=== PATIENT | male | born 1965 | race Caucasian/White ===

== ENCOUNTER 2021-12-26 02:25 | Outpatient (CLI) | payer BC, SELFPAY ==
[2021-12-26 11:43] LABS: Source Nasal/Nares
[2021-12-26 15:26] LABS: COVID-19 PCR Negative (Negative)
== END 2021-12-26 02:26 | disposition home or self-care (01) ==
PROVIDERS: Visit Provider Podiatrist
DX: Z20.822 Contact with and (suspected) exposure to COVID-19 (principal); Z01.818 Encounter for other preprocedural examination
CPT/HCPCS: 87635

== ENCOUNTER 2021-12-28 06:17 | Day surgery (SDC) | payer BC, SELFPAY ==
--- NOTE | 2021-12-27 20:44 | W.PM.HP.N ---
Date of service: 12/27/21 History of Present Illness History of Present Illness Chief Complaint: diabetic ulcer, right hallux Narrative: 56 YO male with a diabetic ulcer of the right hallux that has been there for over a year. It has not responded to non operative treatment. [facility] Medical History Bursitis of shoulder Calculus of kidney Diabetes Erectile dysfunction Essential tremor HLD (hyperlipidemia) HTN (hypertension) Pulmonary embolism 2019 Ulcer of toe Social History Smoking/Tobacco Use Status: Current every day Tobacco Type: smokeless tobacco Smoking risk assessment performed?: Yes Alcohol Intake: current Alcohol Intake frequency: a few times a week Alcohol type: beer Drug use: Never Substance use type: does not use Do you feel safe at home: Yes Do you feel safe in your relationship?: Yes Meds Allergies and Home Medications Allergies Allergy/AdvReac Type Severity Reaction Status Date / Time hydrocodone AdvReac Intermediate Nausea Unverified 12/27/21 09:45 Home Medications Medication Instructions Recorded Confirmed Type atorvastatin 10 mg tablet 10 mg PO DAILY 12/26/21 12/27/21 History dulaglutide 4.5 mg/0.5 mL 4.5 mg subcut QWEEK 12/26/21 12/26/21 History subcutaneous pen injector (Trulicity) empagliflozin 25 mg tablet 25 mg PO DAILY 12/26/21 12/27/21 History (Jardiance) insulin glargine 100 unit/mL (3 50 unit subcut QAM 12/26/21 12/27/21 History mL) subcutaneous pen (Basaglar KwikPen U-100 Insulin) metformin 1,000 mg tablet 1,000 mg PO BID 12/26/21 12/27/21 History mupirocin 2 % topical ointment 1 applic topical DAILY 12/26/21 12/27/21 History pregabalin 100 mg capsule 100 mg PO DAILY 12/26/21 12/27/21 History propranolol 80 mg tablet 80 mg PO DAILY 12/26/21 12/27/21 History rivaroxaban 10 mg tablet (Xarelto) 10 mg PO DAILY 12/26/21 12/27/21 History amoxicillin 875 mg-potassium 1 tab PO BID 12/27/21 12/27/21 History clavulanate 125 mg tablet Exam Narrative Exam Narrative: 56 YO male in NAD Heads Normo-cephalic Eyes PERRLA Hearing is adequate Heart had RRR, no murmurs noted, no rubs or gallops Lung rg are clear Abdomen is soft, BS x 4 Peripheral pulses are palpable, feet are warm to the touch, no edema Full thickness wound is noted along the medial wall of the IPJ of the hallux. Hallux limitus noted with advanced degenerative arthrosis of the 1st MPJ Muscle gps 5/5 Neurological exam: diminished sensation consistent with diabetic neuropathy Imp: Diabetic ulcer right hallux Hallux limitus/rigidus right Plan: Emiliaon is being brought to the OR for a joint resectional arthroplasty of the 1st MPJ and wound debridement of the right hallux. He understands the risks and complications of surgery to include the potential for pain, scarring, infection, nerve damage, failure to thrive potentially requiring additional surgery and possible loss of the toe. All questions have been answered, informed consent obtained.
[2021-12-28 06:32] VITALS: BP 118/84; PULSE 76; RESP 20; TEMP 36.4; O2SAT 95
--- NOTE | 2021-12-28 06:58 | ANES.PREOP_ITS ---
General Info Date of Service Date Performed: 12/28/21 Height: 6 ft 2 in Weight: 131.7 kg Body Mass Index (BMI): 37.3 Surgical Procedure: Operation Date: 12/28/21 07:40 Proposed Procedure Side Surgeon pablo Ny Bunionectomy Right Tomas Betancourt DPM s Wound Debridement Right Tomas S SVEN Betancourt Meds Allergies and Home Medications Allergies Allergy/AdvReac Type Severity Reaction Status Date / Time hydrocodone AdvReac Intermediate Nausea Unverified 12/28/21 06:28 Home Medication Medication Instructions Recorded atorvastatin 10 mg tablet 10 mg PO DAILY 12/26/21 dulaglutide 4.5 mg/0.5 mL 4.5 mg subcut QWEEK 12/26/21 subcutaneous pen injector (Trulicity) empagliflozin 25 mg tablet 25 mg PO DAILY 12/26/21 (Jardiance) insulin glargine 100 unit/mL (3 50 unit subcut QAM 12/26/21 mL) subcutaneous pen (VIVAaglar KwikPen U-100 Insulin) metformin 1,000 mg tablet 1,000 mg PO BID 12/26/21 mupirocin 2 % topical ointment 1 applic topical DAILY 12/26/21 pregabalin 100 mg capsule 100 mg PO DAILY 12/26/21 propranolol 80 mg tablet 80 mg PO DAILY 12/26/21 rivaroxaban 10 mg tablet (Xarelto) 10 mg PO DAILY 12/26/21 amoxicillin 875 mg-potassium 1 tab PO BID 12/27/21 clavulanate 125 mg tablet Current Visit Medications: Current Medications Generic Name Dose Route Start Last Admin Trade Name Freq PRN Reason Stop Dose Admin Sodium Chloride 500 mls @ 0 mls/hr 12/28/21 06:00 Saline 500ml Bag IV PRN PRN As Directed Cefazolin Sodium/Dextrose 2 gm in 50 mls @ 100 mls/hr 12/28/21 06:00 Ancef Duplex IVPB 12/28/21 18:00 PREOP CATHY Ringer's Solution 1,000 mls @ 80 mls/hr 12/28/21 06:00 IV 01/26/22 23:59 INFUSION CATHY IV Miscellaneous Supplies 1 each 12/28/21 06:00 Iv Access IV DIRECTED CATHY IV Miscellaneous Supplies 1 each 12/28/21 06:00 Iv Access IV 01/26/22 23:59 DIRECTED [facility] Povidone Iodine 0 ml 12/28/21 06:00 Povidone-Iodine Soln. 118 Ml Btl TP DIRECTED [facility] Sodium Chloride 0 ml 12/28/21 06:00 Normal Saline Flush 10 Ml Syr IVP PRN PRN PFSH Medical History Medical History (Updated 12/28/21 @ 06:32 by Cecilia Pope, RN) Bursitis of shoulder Calculus of kidney Diabetes Erectile dysfunction Essential tremor Heartburn HLD (hyperlipidemia) HTN (hypertension) Pulmonary embolism 2019 Ulcer of toe Surgical History Surgical History (Updated 12/28/21 @ 06:28 by Cecilia Pope RN) Hx of colonoscopy Hx of knee surgery right - reconstruction acl/mcl Tobacco Smoking/Tobacco Use Status: Current every day Tobacco Type: smokeless tobacco Alcohol Alcohol Intake: current Alcohol intake frequency: a few times a week Alcohol type: beer Substance Use Substance use: Never Substance use type: does not use Vital Signs and Lab Results Vital Signs Most Recent Vital Signs in EMR: Most Recent Vital Signs Temp Pulse Resp BP Pulse Ox 36.4 C L 76 20 118/84 95 12/28/21 06:32 12/28/21 06:32 12/28/21 06:32 12/28/21 06:32 12/28/21 06:32 Lab Results Blood Type / Crossmatch: No Data to Display Complete Blood Count: No Data to Display Complete Metabolic Panel: No Data to Display Liver Function Panel: No Data to Display Coagulation Panel: No Data to Display Cardiac Panel: No Data to Display Arterial Blood Gas: No Data to Display Venous Blood Gas: No Data to Display Pancreas Panel: No Data to Display Thyroid Panel: No Data to Display Infectious Disease: Coronavirus (COVID-19)(PCR) Negative (Negative) 12/26/21 11:15 Coronavirus 2019 Source Nasal/Nares 12/26/21 11:15 Blood Cultures: No Data to Display Toxicology Panel: No Data to Display Anesthesia Assessment and Plan Anesthesia History Personal History: No History of Anesthesia Complications Family History: No Family History of Anesthesia Complications Exercise Tolerance Exercise Tolerance: Metabolic Equivalents>4 Pertinent Negatives Pertinent Negatives: No Major Cardiovascular Symptoms or Complaints, No Major Pulmonary Symptoms or Complaints (Hx of PEx2) and No History of CVA/TIA Cardiac & Pulmonary Exam Cardiac Exam: Normal S1/S2 Heart Sounds Pulmonary Exam: Clear Bilateral Breath Sounds Implantable Cardiac Device Does patient have a Pacemaker or an ICD?: No Airway Exam Known Difficult Airway: No Mallampati Class: 3 Mouth Opening: Normal (> 3cm) Thyromental Distance: Greater than 3 cm Neck Range of Motion: Full ROM Neck Circumference: Normal Teeth Condition: Normal Dentition ASA Classification ASA Score: ASA 2 Emergency Case?: No NPO Status NPO Status: NPO Clears >2 hours, Solids >8 hours Anesthesia Plan Resuscitation Status: Full Code Anesthesia Technique: General Anesthesia Airway Planned: Endotracheal Tube (Change in plan due to active GERD today. Originally natural airway now ETT. Patient understands plan. ) Monitors Used: Standard Monitors
[2021-12-28] MEDS: Lactated Ringers 1,000 ML 80 ML IV (07:05)
[2021-12-28] MEDS: ceFAZolin 2 GM/50 ML BAG IVPB (07:38)
[2021-12-28 07:47] VITALS: BMI 37.3
[2021-12-28] MEDS: Bupivacaine 0.5% Pres-Free 30 ML VIAL (07:56)
[2021-12-28] MEDS: Lidocaine 1% Pres-Free 30 ML VIAL (07:56)
[2021-12-28 08:50] VITALS: BP 107/69; PULSE 81; RESP 22; TEMP 36.6; O2SAT 95
--- NOTE | 2021-12-28 08:53 | W.PM.OP ---
Date of service: 12/28/21 Operative Note Operative Note DATE OF PROCEDURE: 12/28/21 PRE-OP DIAGNOSIS: hallux limitus/rigidus with diabetic ulcer, right foot PROCEDURE: Ny type bunionectomy right Debridement wound, full thickness right hallux SURGEON: Tomas Betancourt Refer to Anesthesia Record ESTIMATED BLOOD LOSS: 1 TOURNIQUET TIME: 52 COMPLICATIONS: None Indications: 56 YO male with history of diabetic ulceration under the IPJ of the right hallux present for well over 1 year. This is failed to close with nonoperative treatments. He also had end-stage degenerative arthrosis of the first MPJ which is a primary contributing factor to the ulceration. He is being brought to the OR for a Ny type bunionectomy, arthroplasty of the first MPJ and wound debridement of the ulceration at the IPJ level. Risk and complications have been discussed. He understands the potential for pain, scarring, infection, floating of the toe, shortening of the toe, persistent ulceration requiring additional revisional procedures potential loss of the toe. No promises have been made to final outcome of surgery. Informed consent has been obtained. Procedure Description: Emiliano is brought to the operative suite placed in the supine position general endotracheal anesthesia achieved. Timeout was performed for safe surgery. The right foot was exsanguinated well-padded ankle tourniquet inflated 250 mmHg. Attention was directed to the dorsal aspect of the first MPJ where a 5 cm incision was made medial parallel to the EHL tendon. The incision was deepened in controlled depth fashion hemostasis acquired with electrocautery as needed. Dissection was carried down to the joint capsule. The capsule was incised midline and divided medially and laterally. Extensive periarticular exostosis formations with osteophytes noted surrounding the joint. The cartilaginous structures were nearly completely eroded on the head of the first metatarsal. With power instrumentation the dorsal medial and lateral hyperostosis from the first metatarsal head were resected. Approximately 1.25 cm of bone resected from the base of the proximal phalanx a little feathering was then performed dorsally so as to improve range of motion. All rough and bony edges were rasped smooth. Good resection of bone and much improved range of motion appreciated on the table. The wound was copiously irrigated with normal saline. The joint capsule was repaired with the hallux held in rectus position with simple interrupted suture 3-0 Vicryl the subcutaneous layer was repaired with simple interrupted suture of 4-0 Vicryl the skin was brought together with continuous running suture of 4-0 Monocryl attention was now directed to the wound under the IPJ of the hallux which was sharply debrided with a #10 scalpel removing the hypertrophic margin slough and devitalized tissue at the base of the wound this debridement continued full-thickness the wound measured 1.4 x 1.6 cm the wound was cleansed with normal saline the dorsal incision was treated with Mastisol half-inch Steri-Strips Xeroform was applied to the incision and plantar hallux wound Betadine solution soaked gauze was then used to support the hallux in a rectus position I opted not to K wire the toe due to the open wound and potential for infection gauze fluff compression dressings were applied and the tourniquet was released at 52 minutes vascularity returning to all toes immediately Emiliano arose from general anesthesia without difficulty and was sent to PACU sharp and sponge counts were correct he will be followed by myself next week. Dictated with Av naturally speaking, not reviewed for leasing assistant accuracy
[2021-12-28 08:55] VITALS: BP 114/61; PULSE 84; RESP 23; TEMP 36.6; O2SAT 95
[2021-12-28 09:00] VITALS: BP 121/84; PULSE 88; RESP 18; TEMP 36.6; O2SAT 94
--- NOTE | 2021-12-28 09:01 | W.PM.DS.N ---
Date of service: 12/28/21 Time of Service: 09:02 DS: Diagnosis Discharge Diagnosis (1) Ulcer of toe: Status: Acute (2) Hallux limitus of right foot: Start date: 12/28/21 Start time: 09:03 Status: Acute Asessment and Plan: Status post arthroplasty, Ny bunionectomy right foot, full-thickness debridement ulceration IPJ right hallux Discharge Plan Disposition Patient Disposition: HOME Condition: Good Discharge Details Reason For Visit: Surgical correction hallux limitus and diabetic ul Attending Provider: Tomas Betancourt Primary Care Provider: Unknown,Unknown Home Meds and New Rx's Prescriptions: No Action propranolol 80 mg Tablet 80 mg PO DAILY atorvastatin 10 mg Tablet 10 mg PO DAILY metformin 1,000 mg Tablet 1,000 mg PO BID mupirocin 2 % Ointment 1 applic TOPICAL DAILY pregabalin 100 mg Capsule 100 mg PO DAILY insulin glargine [Basaglar KwikPen U-100 Insulin] 100 unit/mL (3 mL) Insulin Pen 50 unit SUBCUT QAM Xarelto 10 mg Tablet 10 mg PO DAILY Jardiance 25 mg Tablet 25 mg PO DAILY Trulicity 4.5 mg/0.5 mL Pen Injector 4.5 mg SUBCUT QWEEK amoxicillin-pot clavulanate [Augmentin] 875-125 mg Tablet 1 tab PO BID Discharge Instructions Activity:: Elevate Remove Dressings/Wound Care:: Do Not Remove Shower/Bathe:: Cover Diet:: Carb Counting Discharge Orders Discharge Orders: Discharge Order (Routine); Ordered 12/28/21 Ordered By: Tomas Betancourt DS: Summary Time Spent with Patient providing and/or coordinating discharge services: Less than 30 minutes Status at Discharge Functional status at discharge: independent ambulation Overall status at discharge: patient is back to baseline Mental Status: mental status grossly normal Speech and Movement: speech and movement normal Mood: congruent mood Affect: normal affect Exam Psych Mental Status: mental status grossly normal Speech and Movement: speech and movement normal Mood: congruent mood Affect: normal affect DS: Data Vitals/I&O Vitals and I&O: Vital Signs Temperature 36.6 C 12/28/21 08:55 Pulse 84 12/28/21 08:55 Pulse Rhythm Regular 12/28/21 06:32 Respiratory Rate 25 H 12/28/21 08:55 Respiratory Depth Deep 12/28/21 06:32 Blood Pressure 114/61 12/28/21 08:55 Pulse Oximetry 95 12/28/21 08:55 Respiratory End-tidal CO2 35 12/28/21 08:55 Oxygen Delivery Method Nasal Cannula 12/28/21 08:55 Oxygen Flow Rate 3 12/28/21 08:55 Pain Level 0 12/28/21 08:55 Intake & Output 12/27/21 12/28/21 12/28/21 18:59 06:59 18:59 Intake Total 350 / 350 Balance 350 / 350 Weight 127.913 kg 131.7 kg Intake: IV 350 / 350 Other: Emesis Description None PFSH All Active Problems Hallux limitus of right foot (Acute) Ulcer of toe (Acute) Medical History Bursitis of shoulder Calculus of kidney Diabetes Erectile dysfunction Essential tremor Heartburn HLD (hyperlipidemia) HTN (hypertension) Pulmonary embolism 2019 Surgical History Hx of colonoscopy Hx of knee surgery right - reconstruction acl/mcl Social History Smoking/Tobacco Use Status: Current every day Tobacco Type: smokeless tobacco Smoking risk assessment performed?: Yes Alcohol Intake: current Alcohol Intake frequency: a few times a week Alcohol type: beer Drug use: Never Substance use type: does not use Do you feel safe at home: Yes Do you feel safe in your relationship?: Yes
[2021-12-28 09:16] VITALS: BP 104/78; PULSE 84; RESP 16; TEMP 36.5; O2SAT 95
[2021-12-28 09:41] VITALS: BP 111/81; PULSE 75; RESP 17; TEMP 36.4; O2SAT 95
--- NOTE | 2021-12-28 10:17 | W.ANESPOSTOP ---
Postoperative Evaluation Date, Time and Location Date Performed: 12/28/21 Time Performed: 09:20 Patient Location: Day Surgery Unit Vital Signs Most Recent Imported Vital Signs: Most Recent Vital Signs Temp Pulse Resp BP Pulse Ox 36.5 C 84 16 104/78 95 12/28/21 09:16 12/28/21 09:16 12/28/21 09:16 12/28/21 09:16 12/28/21 09:16 Pain Score Most Recent Pain Score: Most Recent Pain Score Pain Level 0 12/28/21 09:16 Assessment Mental Status: Awake (Alert & Oriented to Patient Baseline) Airway and Respiratory Function: Patent airway with normal (patient baseline) respiratory exam Cardiovascular Function: Hemodynamically Stable Hydration Status: Adequately Hydrated Nausea & Vomiting: No Nausea or Vomiting Pain: Pt. Denies Any Pain Peripheral Nerve Block: Patient did not receive a nerve block Postoperative Comments:: Slight pinched upper lip, appears to be from OPA and patient biting post extubation. Discussed resolution of the pinched lip over the next few days. Patient denied complaint and demonstrated understanding.
== END 2021-12-28 10:04 | disposition home or self-care (01) ==
PROVIDERS: Visit Provider Podiatrist
PROC: (CPT 28292; principal; 2021-12-28 07:30)
PROC: (CPT 28292; 2021-12-28 07:30)
DX: E11.621 Type 2 diabetes mellitus with foot ulcer (principal); M20.5X1 Other deformities of toe(s) (acquired), right foot; I10 Essential (primary) hypertension; E78.5 Hyperlipidemia, unspecified; F17.290 Nicotine dependence, other tobacco product, uncomplicated; Z79.4 Long term (current) use of insulin; Z79.84 Long term (current) use of oral hypoglycemic drugs
CPT/HCPCS: 28292; 11042; J0690; J1100; J1885; J2405; J2704

== ENCOUNTER 2022-01-21 09:56 | Inpatient (IN) | payer BC, SELFPAY ==
[2022-01-21] VITALS (7 sets, daily range): BP systolic 111–126; BP diastolic 73–91; PULSE 69–83; RESP 16–18; TEMP 35.5–36.8; O2SAT 93–98; BMI 36.1
[2022-01-21 10:51] LABS: Source Nasal/Nares
--- NOTE | 2022-01-21 11:16 | ED.GENADUL_ITS ---
Discharge Plan Disposition Patient Disposition: [facility] INPATIENT Condition: Stable Discharge Details Chief Complaint: Cellulitis Clinical Impression: Osteomyelitis, Cellulitis Primary Care Provider: Unknown,Unknown ED Provider: Ulises Cobos Home Meds and New Rx's Prescriptions: No Action propranolol 80 mg Tablet 80 mg PO DAILY atorvastatin 10 mg Tablet 10 mg PO DAILY metformin 1,000 mg Tablet 1,000 mg PO BID mupirocin 2 % Ointment 1 applic TOPICAL DAILY pregabalin 100 mg Capsule 100 mg PO DAILY insulin glargine [Basaglar KwikPen U-100 Insulin] 100 unit/mL (3 mL) Insulin Pen 50 unit SUBCUT QAM Xarelto 10 mg Tablet 10 mg PO DAILY Jardiance 25 mg Tablet 25 mg PO DAILY Trulicity 4.5 mg/0.5 mL Pen Injector 4.5 mg SUBCUT QWEEK amoxicillin-pot clavulanate [Augmentin] 875-125 mg Tablet 1 tab PO BID Medical Decision Making 56-year-old male history of diabetes presents referred in by podiatry for surgical debridement of dehisced wound base of right great toe, has developed worsening infection over the past several days including drainage erythema induration and warmth. Afebrile nontoxic neurovascular exam of limb intact however does appear to have localized infection surrounding dehisced wound. No crepitus no fluctuance appreciated. Given diabetic and wound appearance will start empirically on clindamycin. Have spoken with primary him specialist who plans to debride wound around 5 PM in the OR. Patient to be admitted for IV antibiotics and prep. Will obtain basic labs blood labs blood cultures x-ray. Evidence of metatarsal osteomyelitis as well as skin infection. Started on antibiotics. Plan is to admit patient for operative management this evening. HPI General Date/Time Provider Initiated Documentation: 01/21/22 10:37 . HPI Narrative: 56-year-old male history of diabetes, right great toe wound status post debridement approximately 1 month ago, seen at presents referred in by podiatry for evaluation of wound dehiscence and infection of great toe, plan for surgical debridement this evening and IV antibiotics. Patient endorses drainage from wound over the past several days as well as increased redness and pain. Related Data Home Medications Medication Instructions Recorded Confirmed atorvastatin 10 mg tablet 10 mg PO DAILY 12/26/21 12/28/21 dulaglutide 4.5 mg/0.5 mL 4.5 mg subcut QWEEK 12/26/21 12/28/21 subcutaneous pen injector (Trulicity) empagliflozin 25 mg tablet 25 mg PO DAILY 12/26/21 12/28/21 (Jardiance) insulin glargine 100 unit/mL (3 50 unit subcut QAM 12/26/21 12/28/21 mL) subcutaneous pen (Basaglar KwikPen U-100 Insulin) metformin 1,000 mg tablet 1,000 mg PO BID 12/26/21 12/28/21 mupirocin 2 % topical ointment 1 applic topical DAILY 12/26/21 12/28/21 pregabalin 100 mg capsule 100 mg PO DAILY 12/26/21 12/28/21 propranolol 80 mg tablet 80 mg PO DAILY 12/26/21 12/28/21 rivaroxaban 10 mg tablet (Xarelto) 10 mg PO DAILY 12/26/21 12/28/21 amoxicillin 875 mg-potassium 1 tab PO BID 12/27/21 12/28/21 clavulanate 125 mg tablet Allergies Allergy/AdvReac Type Severity Reaction Status Date / Time hydrocodone AdvReac Intermediate Nausea Unverified 12/28/21 06:28 General Stated Complaint: Cellulitis ALEXX: 3 Review of Systems Narrative: Review of Systems Constitutional: negative Eyes: negative ENT: negative Cardiovascular: negative Respiratory: negative Gastrointestinal: negative : negative Musculoskeletal: negative Skin: Toe infection, wound dehiscence Neurologic: negative Psych: negative PFSH All Active Problems (Updated 01/21/22 @ 14:28 by Ulises Cobos MD) Osteomyelitis (Acute) Cellulitis (Acute) Hallux limitus of right foot (Acute) Ulcer of toe (Acute) Medical History Bursitis of shoulder Calculus of kidney Diabetes Erectile dysfunction Essential tremor Heartburn HLD (hyperlipidemia) HTN (hypertension) Pulmonary embolism 2019 Surgical History Hx of colonoscopy Hx of knee surgery right - reconstruction acl/mcl Social History Smoking/Tobacco Use Status: Current every day Tobacco Type: smokeless tobacco Smoking risk assessment performed?: Yes Alcohol Intake: current Alcohol Intake frequency: a few times a week Alcohol type: beer Drug use: Never Substance use type: does not use Do you feel safe at home: Yes Do you feel safe in your relationship?: Yes Exam Narrative Exam Narrative: Physical Examination General: alert, awake, cooperative, resting comfortably, no acute distress HEENT: normocephalic, atraumatic; PERRL, EOM intact, conjunctiva normal; no nasal discharge; moist mucous membranes, oral and pharyngeal mucosa normal, tolerating secretions Neck: supple, trachea midline; full ROM Chest: normal to inspection Respiratory: normal respiratory effort, speaking in full sentences, clear to auscultation, no wheezing, rales or rhonchi Cardiac: regular rate, regular rhythm, S1S2 intact, no murmurs rubs or gallops GI: abdomen soft, non-tender, non-distended; no palpable mass or hepatosplenomegaly Skin: no lesions, rashes or trauma appreciated Neuro: AAOx3, normal speech, moving all extremities Extremities: 3 cm gaping wound to base of right great toe dorsal aspect some granulation tissue however some cloudy serous drainage with surrounding induration erythema and warmth Psych: Appropriate mood and affect Course Vital Signs Vital signs: Vital Signs Temperature 36.6 C 01/21/22 10:08 Pulse 83 01/21/22 10:08 Respiratory Rate 18 01/21/22 10:08 Blood Pressure 118/91 H 01/21/22 10:08 Pulse Oximetry 97 01/21/22 10:08 Temperature 36.6 C 01/21/22 10:08 Temperature Source Temporal Artery Scan 01/21/22 10:08 Pulse 83 01/21/22 10:08 Respiratory Rate 18 01/21/22 10:08 Blood Pressure 118/91 H 01/21/22 10:08 Blood Pressure Position Sitting 01/21/22 10:08 Pulse Oximetry 97 01/21/22 10:08 Oxygen Delivery Method Room Air 01/21/22 10:08 Oxygen Flow Rate 0 01/21/22 10:08 Lab/Test Results Lab/Test Results: 01/21/22 11:07 Blood Blood Culture - Pending 01/21/22 11:07 Blood Blood Culture - Pending Laboratory Tests Range/Units 01/21/22 10:48 COVID-19 Source Nasal/Nares
[2022-01-21 11:25] LABS: COVID-19 PCR Negative (Negative)
[2022-01-21 12:45] LABS: ESR 44 mm/hr (0-20)
[2022-01-21] MEDS: CLINDAMYCIN 600 MG/50 ML BAG 100 MG IVPB (12:46)
[2022-01-21] MEDS: Normal Saline 1,000 ML 1000 ML IV (12:47)
[2022-01-21 12:49] LABS: Abs Immature Grans 0.02 10^3/uL (0.0-0.06); Absolute Basophil Count 0.04 10^3/uL (0.0-0.2); Absolute Eosinophil Count 0.08 10^3/uL (0.0-0.7); Absolute Lymphocyte Count 1.82 10^3/uL (1.2-3.4); Absolute Monocyte Count 0.68 10^3/uL (0.1-0.8); Absolute Neutrophil Count 3.67 10^3/uL (1.2-6.7); Basophils % 0.6; Eosinophils % 1.3; HCT 45.6 % (40.0-50.0); HGB 15.5 g/dL (13.5-17.5); Immature Grans % 0.3; Lymphocytes % 28.8; MCH 31.3 pg (27.0-33.0); MCV 92 fL (80-95); Monocytes % 10.8; Neutrophils % 58.2; Platelet Count 286 10^3/uL (130-400); RBC 4.96 10^6/uL (4.36-5.78); RDW 12.5 % (11.8-14.1); RDW-SD 42.5 fL; WBC 6.31 10^3/uL (4.4-10.8)
[2022-01-21 12:59] LABS: ALT 27 U/L (16-63); AST 12 U/L (15-37); Albumin 3.4 g/dL (3.4-5.0); Alkaline Phosphatase 65 U/L (46-116); Anion Gap 8.1 mmol/L (3-11); BUN 13 mg/dL (7-18); Bilirubin, Total 0.6 mg/dL (0.2-1.0); CO2 27.9 mmol/L (21.0-32.0); Chloride 101 mmol/L (98-107); Glucose 150 mg/dL (74-106); Potassium 4.1 mmol/L (3.5-5.1); Sodium 137 mmol/L (136-145); Total Protein 8.2 g/dL (6.4-8.2)
--- NOTE | 2022-01-21 13:20 | ANES.PREOP_ITS ---
General Info Date of Service Date Performed: 01/21/22 Height: 6 ft 2 in Weight: 127.459 kg Body Mass Index (BMI): 36.1 Surgical Procedure: Operation Date: 01/21/22 17:10 Proposed Procedure Side Surgeon p Debridement Foot Right Tomas Betancourt DPM Meds Allergies and Home Medications Allergies Allergy/AdvReac Type Severity Reaction Status Date / Time hydrocodone AdvReac Intermediate Nausea Unverified 12/28/21 06:28 Home Medication Medication Instructions Recorded atorvastatin 10 mg tablet 10 mg PO DAILY 12/26/21 dulaglutide 4.5 mg/0.5 mL 4.5 mg subcut QWEEK 12/26/21 subcutaneous pen injector (Trulicity) empagliflozin 25 mg tablet 25 mg PO DAILY 12/26/21 (Jardiance) insulin glargine 100 unit/mL (3 50 unit subcut QAM 12/26/21 mL) subcutaneous pen (Basaglar KwikPen U-100 Insulin) metformin 1,000 mg tablet 1,000 mg PO BID 12/26/21 mupirocin 2 % topical ointment 1 applic topical DAILY 12/26/21 pregabalin 100 mg capsule 100 mg PO DAILY 12/26/21 propranolol 80 mg tablet 80 mg PO DAILY 12/26/21 rivaroxaban 10 mg tablet (Xarelto) 10 mg PO DAILY 12/26/21 amoxicillin 875 mg-potassium 1 tab PO BID 12/27/21 clavulanate 125 mg tablet Current Visit Medications: Current Medications Generic Name Dose Route Start Last Admin Trade Name Freq PRN Reason Stop Dose Admin Clindamycin Phosphate/Dextrose 600 mg in 50 mls @ 100 mls/hr 01/21/22 11:15 01/21/22 12:46 Cleocin In D5w IVPB 100 mls/hr Q6H CATHY Administration PFSH Active Problems Active Problems: Problem Status Onset Code Hallux limitus of right foot M20.5X1 Ulcer of toe L97.509 Medical History Medical History Bursitis of shoulder Calculus of kidney Diabetes Erectile dysfunction Essential tremor Heartburn HLD (hyperlipidemia) HTN (hypertension) Pulmonary embolism 2018 Surgical History Surgical History Hx of colonoscopy Hx of knee surgery right - reconstruction acl/mcl Tobacco Smoking/Tobacco Use Status: Current every day Tobacco Type: smokeless tobacco Alcohol Alcohol Intake: current Alcohol intake frequency: a few times a week Alcohol type: beer Substance Use Substance use: Never Substance use type: does not use Vital Signs and Lab Results Vital Signs Most Recent Vital Signs in EMR: Most Recent Vital Signs Temp Pulse Resp BP Pulse Ox 36.8 C 79 16 122/82 95 01/21/22 11:34 01/21/22 11:57 01/21/22 11:57 01/21/22 11:34 01/21/22 11:57 Lab Results Result Diagrams: 01/21/22 12:40 01/21/22 12:40 Blood Type / Crossmatch: No Data to Display Complete Blood Count: White Blood Count 6.31 10^3/uL (4.4-10.8) 01/21/22 12:40 Red Blood Count 4.96 10^6/uL (4.36-5.78) 01/21/22 12:40 Hemoglobin 15.5 g/dL (13.5-17.5) 01/21/22 12:40 Hematocrit 45.6 % (40.0-50.0) 01/21/22 12:40 Platelet Count 286 10^3/uL (130-400) 01/21/22 12:40 Complete Metabolic Panel: Sodium Level 137 mmol/L (136-145) 01/21/22 12:40 Potassium Level 4.1 mmol/L (3.5-5.1) 01/21/22 12:40 Chloride Level 101 mmol/L (98-107) 01/21/22 12:40 Carbon Dioxide Level 27.9 mmol/L (21.0-32.0) 01/21/22 12:40 Blood Urea Nitrogen 13 mg/dL (7-18) 01/21/22 12:40 Creatinine 1.0 mg/dL (0.70-1.30) 01/21/22 12:40 Estimated GFR/1.73 m2 >= 60.00 (mL/min/1.73m2) 01/21/22 12:40 Calcium Level 9.0 mg/dL (8.5-10.1) 01/21/22 12:40 Albumin 3.4 g/dL (3.4-5.0) 01/21/22 12:40 Glucose Level 150 mg/dL (74-106) H 01/21/22 12:40 C-Reactive Protein 9.70 mg/dL (0.0-0.3) H 01/21/22 12:40 Liver Function Panel: Alanine Aminotransferase (ALT/SGPT) 27 U/L (16-63) 01/21/22 12: 40 Aspartate Amino Transf (AST/SGOT) 12 U/L (15-37) L 01/21/22 12: 40 Coagulation Panel: No Data to Display Cardiac Panel: No Data to Display Arterial Blood Gas: No Data to Display Venous Blood Gas: No Data to Display Pancreas Panel: No Data to Display Thyroid Panel: No Data to Display Infectious Disease: Coronavirus (COVID-19)(PCR) Negative (Negative) 01/21/22 10:48 Coronavirus 2019 Source Nasal/Nares 01/21/22 10:48 Blood Cultures: No Data to Display Toxicology Panel: No Data to Display Anesthesia Assessment and Plan Anesthesia History Personal History: No History of Anesthesia Complications Family History: No Family History of Anesthesia Complications Exercise Tolerance Exercise Tolerance: Metabolic Equivalents>4 Cardiac & Pulmonary Exam Cardiac Exam: Normal S1/S2 Heart Sounds Pulmonary Exam: Clear Bilateral Breath Sounds Implantable Cardiac Device Does patient have a Pacemaker or an ICD?: No Airway Exam Known Difficult Airway: No Mallampati Class: 3 Mouth Opening: Normal (> 3cm) Thyromental Distance: Greater than 3 cm Neck Range of Motion: Full ROM Neck Circumference: Normal Teeth Condition: Normal Dentition ASA Classification ASA Score: ASA 2 Emergency Case?: No NPO Status NPO Status: NPO Clears >2 hours, Solids >8 hours Anesthesia Plan Resuscitation Status: Full Code Anesthesia Technique: MAC Anesthesia Airway Planned: Natural Airway Pain Management: Surgeon and patient request nerve block Monitors Used: Standard Monitors Preoperative Comments:: To OR for infection. Denies GERD.
--- NOTE | 2022-01-21 13:28 | DI.RAD_ITS ---
Exam(s) XR FOOT RT COMPLETE EXAM: XR FOOT RT COMPLETE CLINICAL HISTORY: infected wound base of great toe. TECHNIQUE: 2D digital imaging was performed. COMPARISON: No exams were available for comparison FINDINGS: 3 views There has been amputation of the proximal aspect of the proximal phalanx of the great toe.. This bon e age appear sharp. However, the adjacent lateral half of the head of the great toe metatarsal appea rs eroded, this being suspicious for osteomyelitis given that there is overlying soft tissue swelling and skin ulcer. Addition, the density of the proximal phalanx is slightly higher than the density o f the other phalanges and this may reflect the presence of bone edema in the proximal phalanx. No acute fractures. Lisfranc joint intact. Other metatarsals and toes appear intact. Inferior calc aneal spur noted. IMPRESSION: Great toe findings as above, suspicious for osteomyelitis in the head of the great toe. DATA REPOSITORY: RADIATION DOSE DELIVERED:
--- NOTE | 2022-01-21 14:03 | PDOC.ERCMPRO ---
- If Service Date Differs Date of service: 01/21/22 Time of Service: 14:03 Care Management Progress Note SBIRT screen: positive for nicotine (chew). Pt reports no other substance use or mental health symptoms and notes that he has significantly reduced his alcohol use in the past year. Pt was provided with resources for tobacco cessation and was affirmed for reduction of alcohol use.
--- NOTE | 2022-01-21 15:28 | HPE_ITS ---
Date of service: 01/21/22 Time of Service: 15:28 Assessment and Plan Assessment and plan (1) Osteomyelitis: Status: Acute Assessment and plan: blood cultures were obtained while patient was in the ER. He is scheduled for OR this evening for debridement and bone biopsy of the right great toe. I will initiate empiric treatment for coverage of MRSA, Strep, anaerobes and gram negatives including Pseudomonas. I have ordered Vancomycin and Meropenem to be given initially until we get his cultures back. Hopefully the toe can be saved and amputation can be avoided w/ aggressive debridement and intermediate antibiotics. He will need 6 weeks of directed antibiotic therapy against whatever organism his wound grows. Dr. Betancourt to perform surgery this evening. (2) Ulcer of toe: Status: Acute Assessment and plan: as above. (3) Cellulitis: Status: Acute Assessment and plan: as above (4) Hallux limitus of right foot: Status: Acute (5) Type 2 diabetes mellitus with peripheral neuropathy: Status: Acute Assessment and plan: will cover w/ basal/bolus insulin (6) HTN (hypertension): Assessment and plan: continue propranolol which I believe he is actually taking for essential tremor rather than for HTN (7) Pulmonary embolism: (8) HLD (hyperlipidemia): Assessment and plan: continue atorvastatin History of Present Illness History of Present Illness Chief Complaint: right great toe infection Narrative: 56-year-old type II diabetic treated with Ivory as an Trulicity who had surgery on his right great toe to correct hallux limitus/rigidus deformity. He underwent a Ny type bunionectomy on 12/28/2021. 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 Since that time he has been following with his concrete batch plant operator who has had him on oral antibiotics. Patient just completed a course of Augmentin and in spite of that the right great toe is draining purulent material and the skin is opened up over the dorsum of the toe. He was sent into the emergency department by his concrete batch plant operator. Evaluation in the emergency department clued an x-ray of the right foot shows osteomyelitis of the head of the right great toe. The adjacent lateral half of the head of the great toe metatarsal joint appears to be eroded. There is swelling of the soft tissue over this area and skin ulceration. There is also edema of the proximal phalanx. Laboratory work-up included CBC that was unremarkable. CMP showed elevated glucose of 150 but otherwise normal LFTs and normal renal function electrolytes. CRP is elevated 9.7. Nasal swab for COVID-19 PCR test was negative. Patient is being admitted for surgical debridement and bone biopsy and initiation of broad-spectrum antibiotics. Comorbidities include hypertens ion and diabetes mellitus with peripheral neuropathy. He denies a history of retinopathy or nephropathy. He does have a history of a pulmonary embolus about 6 years ago that occurred de jim and has been chronically on Xarelto 10 mg daily since then. His last dose of Xarelto was yesterday. Review of Systems Constitutional Constitutional: Denies chills and Denies fever(s) Eyes Eyes: Reports system reviewed and no additional complaints, except as documented ENT Ears, Nose, Mouth, and Throat: Reports system reviewed and no additional complaints, except as documented Cardiovascular Cardiovascular: Reports system reviewed and no additional complaints, except as documented Respiratory Respiratory: Reports system reviewed and no additional complaints, except as documented Gastrointestinal Gastrointestinal: Reports system reviewed and no additional complaints, except as documented Genitourinary Genitourinary: Reports system reviewed and no additional complaints, except as documented Musculoskeletal Musculoskeletal: Reports limited range of motion, Reports numbness and Reports tingling Integumentary/Breasts Skin/Breast: Reports as per HPI, Reports skin swelling, Reports skin ulcer and Reports wounds Neurologic Neurologic: Reports burning sensations, Reports numbness, Reports tingling and Reports paresthesias Psychiatric Psychiatric: Reports system reviewed and no additional complaints, except as documented Endocrine Endocrine: Reports system reviewed and no additional complaints, except as documented Hematologic/Lymphatic Hematologic/Lymphatic: Reports system reviewed and no additional complaints, exc ept as documented Allergic/Immunologic Allergic/Immunologic: Reports system reviewed and no additional complaints, except as documented PFSH All Active Problems (Updated 01/21/22 @ 16:57 by Matt Rockwell MD) Type 2 diabetes mellitus with peripheral neuropathy (Acute) Osteomyelitis (Acute) Cellulitis (Acute) Hallux limitus of right foot (Acute) Ulcer of toe (Acute) Medical History Bursitis of shoulder Calculus of kidney Diabetes Erectile dysfunction Essential tremor Heartburn HLD (hyperlipidemia) HTN (hypertension) Pulmonary embolism 2018 Surgical History Hx of colonoscopy Hx of knee surgery right - reconstruction acl/mcl Family History (Updated 01/21/22 @ 17:03 by Matt Rockwell MD) Father Diabetes Heart disease father w/ NE and subsequent two open heart surgeries for CABG; onset of CAD was in his 50's Social History Smoking/Tobacco Use Status: Current every day Tobacco Type: smokeless tobacco Smoking risk assessment performed?: Yes Alcohol Intake: current Alcohol Intake frequency: a few times a week Alcohol ty pe: beer Drug use: Never Substance use type: does not use Do you feel safe at home: Yes Do you feel safe in your relationship?: Yes Meds Allergies and Home Medications Allergies Allergy/AdvReac Type Severity Reaction Status Date / Time hydrocodone AdvReac Intermediate Nausea Unverified 12/28/21 06:28 Home Medications Medication Instructions Recorded Confirmed Type atorvastatin 10 mg tablet 10 mg PO DAILY 12/26/21 01/21/22 History dulaglutide 4.5 mg/0.5 mL 4.5 mg subcut QWEEK 12/26/21 01/21/22 History subcutaneous pen injector (Trulicity) empagliflozin 25 mg tablet 25 mg PO DAILY 12/26/21 01/21/22 History (Jardiance) insulin glargine 100 unit/mL (3 50 unit subcut QAM 12/26/21 01/21/22 History mL) subcutaneous pen (Basaglar KwikPen U-100 Insulin) metformin 1,000 mg tablet 1,000 mg PO BID 12/26/21 01/21/22 History mupirocin 2 % topical ointment 1 applic topical DAILY 12/26/21 01/21/22 History pregabalin 100 mg capsule 100 mg PO DAILY 12/26/21 01/21/22 History propranolol 80 mg tablet 80 mg PO DAILY 12/26/21 01/21/22 History rivaroxaban 10 mg tablet (Xarelto) 10 mg PO DAILY 12/26/21 01/21/22 History amoxicillin 875 mg-potassium 1 tab PO BID 12/27/21 01/21/22 History clavulanate 125 mg tablet Exam Narrative Exam Narrative: Alert and oriented x4 HEENT: Atraumatic normocephalic, pupils equally round reactive to light and accommodation, extraocular motion intact, TMs intact, nares moist and patent without exudate or bleeding, oropharynx noninjected without exudate, teeth in good repair Neck: Supple, nontender, without thyromegaly or lymphadenopathy or JVD. Normal carotid pulses Lungs: Clear to auscultation and percussion Heart: Regular rate and rhythm without murmur rub or gallop. Normal apical impulse Abdomen: Obese, Nondistended, normal bowel sounds, nontender to palpation or percussion, no organomegaly, no bruits, no palpable masses Genitalia and rectal exam deferred Extremities: Normal range of motion with normal strength. No peripheral cyanosis. Normal pulses. right great toe w/ open ulceration w/ purulent drainage from dorsum of toe from the IP to the MTP joint w/ surrounding erythema and increased warmth over the MPT joint and dorsum of foot. Right foot is edematous and warm. Normal pedal pulses. Neurologic: Cranial nerves II through XII grossly within normal limits. Normal strength and ROM of UE and LE except decr. ROM of right great toe. Sensory is impaired to light touch over toes over both feet. Results Labs Result diagrams: 01/21/22 12:40 01/21/22 12:40 Labs: Laboratory Results - last 24 hr 01/21/22 01/21/22 01/21/22 10:48 12:40 12:40 WBC RBC Hgb Hct MCV MCH MCHC RDW Plt Count MPV Immature Gran % Neutrophils % Lymphocytes % Monocytes % Eosinophils % Basophils % Nucleated RBC % Absolute Neutrophils Absolute Lymphocytes Absolute Monocytes Absolute Eosinophils Absolute Basophils ESR 44 H Sodium 137 Potassium 4.1 Chloride 101 Carbon Dioxide 27.9 Anion Gap 8.1 BUN 13 Creatinine 1.0 Estimated GFR/1.73 m2 >= 60.00 Glucose 150 H Calcium 9.0 Total Bilirubin 0.6 AST 12 L ALT 27 Alkaline Phosphatase 65 C-Reactive Protein 9.70 H Total Protein 8.2 Albumin 3.4 COVID-19 Source Nasal/Nares SARS-CoV-2 (PCR) Negative 01/21/22 12:40 WBC 6.31 RBC 4.96 Hgb 15.5 Hct 45.6 MCV 92 MCH 31.3 MCHC 34.0 RDW 12.5 Plt Count 286 MPV 10.0 Immature Gran % 0.3 Neutrophils % 58.2 Lymphocytes % 28.8 Monocytes % 10.8 Eosinophils % 1.3 Basophils % 0.6 Nucleated RBC % 0.0 Absolute Neutrophils 3.67 Absolute Lymphocytes 1.82 Absolute Monocytes 0.68 Absolute Eosinophils 0.08 Absolute Basophils 0.04 ESR Sodium Potassium Chloride Carbon Dioxide Anion Gap BUN Creatinine Estimated GFR/1.73 m2 Glucose Calcium Total Bilirubin AST ALT Alkaline Phosphatase C-Reactive Protein Total Protein Albumin COVID-19 Source SARS-CoV-2 (PCR) Last Vital Signs Temp 36.8 C 01/21/22 11:34 Pulse 79 01/21/22 11:57 Resp 16 01/21/22 11:57 BP 122/82 01/21/22 11:34 Pulse Ox 95 01/21/22 11:57
[2022-01-21] MEDS: Lactated Ringers 1,000 ML 30 ML IV (17:05)
[2022-01-21] MEDS: Gentamicin 80 MG/2 ML VIAL 240 MG IU (17:20)
[2022-01-21] MEDS: Bupivacaine 0.5% Pres-Free 30 ML VIAL (18:08)
[2022-01-21] MEDS: Lidocaine 1% Pres-Free 5 ML VIAL (18:10)
--- NOTE | 2022-01-21 18:24 | W.PM.OP ---
Date of service: 01/21/22 Time of Service: 18:24 Operative Note Operative Note DATE OF PROCEDURE: 01/21/22 PRE-OP DIAGNOSIS: Wound dehiscence with osteomyelitis right first MPJ PROCEDURE: Debridement to bone right first MPJ with implantation stimulant antibiotic beads utilizing 240 mg gentamicin SURGEON: Tomas Betancourt Refer to Anesthesia Record ESTIMATED BLOOD LOSS: 5 PATHOLOGY: none sent TOURNIQUET TIME: 0 Patient was transported to: floor Patient's condition: stable Implants: Stimulan antibiotic beads Indications: 56-year-old diabetic male status post Ny type bunionectomy right foot for resolution of hallux rigidus deformity and diabetic ulceration affecting the great toe. Wound dehiscence was noted on first postop visit 3 days out and progressed in spite of oral antibiotics and topical wound care. Increased signs of infection and radiologic evidence of osteomyelitis affecting the first metatarsal head prompted surgical intervention consisting of debridement of the wound resection of the first metatarsal head and implantation of antibiotic beads utilizing gentamicin. Emiliano understands risk and complications of surgery to include the need for serial debridements, shortening and floating of the great toe if not ultimate amputation of the hallux if he fails to thrive. Nerve injury and ongoing infection emphasized as possible complications. All questions were answered in detail. Informed consent was obtained. Findings: Whitish-green pus was appreciated coming from deep portion of the wound, joint space. Degenerative erosion of the medial portion of the first metatarsal head noted. Procedure Description: Emiliano was brought to the operative suite placed in the supine position with the right foot was prepped and draped in the usual sterile podiatric fashion utilizing a Betadine solution and paint prep. Timeout was performed for safe surgery. Anesthesia being obtained utilizing 10 cc of a 50: 50 mixture 1% lidocaine plain, 0.5% Marcaine plain in a Sanabria fashion and IV general by anesthesia. Attention was directed to the wound overlying the first MPJ of the right foot with fibrotic tissue was appreciated dorsally over the wound and devitalized tissue in the central portion. With a #15 blade and scalpel I excised the wound in its entirety and discarded. The skin margins were resected to good healthy margins being appreciated. Dissection was carried down with a #15 scalpel removing remaining suture material (Vicryl) and going into the first intermetatarsal space. McGlamery metatarsal elevator was used to free the soft tissues from around the first metatarsal head. With power instrumentation the cartilaginous portion of the first metatarsal head was resected and removed from the wound. Degenerative and erosive changes were appreciated through what appeared to be the dorsal medial portion of the head. Aerobic and anaerobic specimens were obtained at this level and sent to microbiology. With a round sure additional tissue was resected until good healthy bleeding was noted. The wound was copiously irrigated with normal saline. No additional purulence identified and no additional devitalized tissue noted. Stimulant antibiotic beads with gentamicin was then implanted into the first metatarsal phalangeal joint. The incision was then closed with a combination of #2 Prolene in a far near near far suture technique interspersed by #2 nylon. The incision was closed loosely so as to allow drainage as needed. The wound was dressed with Xeroform fluffs Kerlix rolls Flaquito wrap in the usual fashion. Sharp and sponge counts were correct upon closure. Emiliano left the OR with vital signs stable and will remain in-house for IV antibiotics and bedrest.
--- NOTE | 2022-01-21 18:28 | W.ANESPOSTOP ---
Postoperative Evaluation Date, Time and Location Date Performed: 01/21/22 Time Performed: 18:28 Patient Location: Med/Surg Vital Signs Most Recent Imported Vital Signs: Most Recent Vital Signs Temp Pulse Resp BP Pulse Ox 35.5 C L 73 18 111/74 93 01/21/22 18:27 01/21/22 18:27 01/21/22 18:27 01/21/22 18:27 01/21/22 18:27 Pain Score Most Recent Pain Score: Most Recent Pain Score Pain Level 0 01/21/22 18:27 Assessment Mental Status: Awake (Alert & Oriented to Patient Baseline) Airway and Respiratory Function: Patent airway with normal (patient baseline) respiratory exam Cardiovascular Function: Hemodynamically Stable Hydration Status: Adequately Hydrated Nausea & Vomiting: No Nausea or Vomiting Pain: Pt. Denies Any Pain Peripheral Nerve Block: Patient did not receive a nerve block
[2022-01-21] MEDS: MEROPENEM 1 GM in Normal Saline 100 ML IVPB (20:07)
[2022-01-21] MEDS: Insulin Aspart 300 UNITS/3 ML PEN SC (21:06)
[2022-01-21] MEDS: VANCOMYCIN/WATER (PEG) 2 GM/400 ML BAG IV (21:06)
[2022-01-21] MEDS: Insulin Glargine 300 UNITS/3 ML PEN 10 UNITS SC (21:08)
[2022-01-21] MEDS: Normal Saline Flush 10 ML SYR IVP (23:14)
[2022-01-22 03:04] VITALS: BP 123/74; PULSE 79; RESP 15; TEMP 36.8; O2SAT 95
[2022-01-22] MEDS: Acetaminophen 325 MG TAB PO (03:11)
[2022-01-22] MEDS: MEROPENEM 1 GM in Normal Saline 100 ML IVPB ×3 (03:12→20:00)
[2022-01-22 06:23] LABS: Abs Immature Grans 0.02 10^3/uL (0.0-0.06); Absolute Basophil Count 0.04 10^3/uL (0.0-0.2); Absolute Lymphocyte Count 1.52 10^3/uL (1.2-3.4); Absolute Monocyte Count 0.74 10^3/uL (0.1-0.8); Absolute Neutrophil Count 3.65 10^3/uL (1.2-6.7); Basophils % 0.7; Eosinophils % 1.6; HCT 41.6 % (40.0-50.0); HGB 14.5 g/dL (13.5-17.5); Immature Grans % 0.3; MCH 31.6 pg (27.0-33.0); MCHC 34.9 % (32.0-36.0); MCV 91 fL (80-95); Monocytes % 12.2; Neutrophils % 60.2; Platelet Count 284 10^3/uL (130-400); RBC 4.59 10^6/uL (4.36-5.78); RDW 12.6 % (11.8-14.1); RDW-SD 41.6 fL; WBC 6.07 10^3/uL (4.4-10.8)
[2022-01-22 07:00] LABS: Anion Gap 8.9 mmol/L (3-11); BUN 13 mg/dL (7-18); CO2 25.1 mmol/L (21.0-32.0); CREATININE 0.8 mg/dL (0.70-1.30); Calcium 8.9 mg/dL (8.5-10.1); Chloride 103 mmol/L (98-107); Glucose 128 mg/dL (74-106); Potassium 3.9 mmol/L (3.5-5.1); Sodium 137 mmol/L (136-145)
[2022-01-22 07:26] VITALS: BP 132/88; PULSE 73; RESP 19; TEMP 35.8; O2SAT 95
[2022-01-22] MEDS: Normal Saline Flush 10 ML SYR IVP ×2 (08:34→12:23)
[2022-01-22] MEDS: VANCOMYCIN/WATER (PEG) 2 GM/400 ML BAG IV ×2 (08:34→21:04)
[2022-01-22] MEDS: Insulin Aspart 300 UNITS/3 ML PEN SC ×2 (08:35→21:46)
[2022-01-22] MEDS: Pregabalin 100 MG CAP PO (08:36)
[2022-01-22] MEDS: Atorvastatin 10 MG TAB PO (08:36)
[2022-01-22] MEDS: Empaglifozin 25 MG TAB PO (08:36)
--- NOTE | 2022-01-22 08:41 | INITIAL_ITS ---
- If Service Date Differs Date of service: 01/22/22 Time of Service: 08:41 Care Management Initial Assess REASON FOR HOSPITALIZATION:: Osteomyelitis PAST MEDICAL HISTORY/PAST SURGICAL HISTORY:: All Active Problems (Updated 01/21/22 @ 16:57 by Matt Rockwell MD). Type 2 diabetes mellitus with peripheral neuropathy (Acute). Osteomyelitis (Acute). Cellulitis (Acute). Hallux limitus of right foot (Acute). Ulcer of toe (Acute). Medical History . Bursitis of shoulder. Calculus of kidney. Diabetes. Erectile dysfunction. Essential tremor. Heartburn. HLD (hyperlipidemia). HTN (hypertension). Pulmonary embolism. 2019. Surgical History . Hx of colonoscopy. Hx of knee surgery. right - reconstruction acl/mcl PREVIOUS FUNCTIONAL STATUS/SOCIAL/FAMILY SUPPORTS:: Emiliano lives in a single family home in [place], [place] with his Zo and her 16 year old son Maicol. They also have a daughter who lives in [facility] with her Dad. 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 Emiliano explained that he has [facility] [employer] as his sales territory and loves it here. He is independent at baseline and receives no community services. CURRENT FUNCTIONAL STATUS:: Emiliano was sitting up in bed when CM met with him. He was very pleasant and ageeable to conversation. He spoke about his family and his move to [place] last year. He also spoke about some of his health challenges. Emiliano has Diabetes and has been diagnosed with osteomyelitis of his right great toe. This developed after foot surgery in December when the wound opened up after a day where he was required to do a lot of walking. He understands that he will need about 5-6 weeks of IVAB therapy. CM explained the different modalities for the administration of the medication. Emiliano stated that he would prefer to be on home infusion or, if feasible, to go to an outpatient infusion center daily for his antibiotics. Culture results and sensitivities are pending. ADVANCE DIRECTIVES:: Emiliano does not currently have ADs but requested a copy of the [place] forms for himself and his . Has patient been provided with info about the portal/API?: Yes Did the patient sign up for the portal?: No CODE STATUS:: Full Code INSURANCE COVERAGE / FINANCIAL ISSUES:: [employer] CURRENT HOME/COMMUNITY SERVICES/EQUIPMENT:: none PRIMARY CARE PHYSICIAN:: Dr. Maya in [place], [place] POTENTIAL DISCHARGE NEEDS:: Follow up with PCP, Podiatry, orthopedic surgeon and plan of care. Emiliano will likely need pea viner mechanic antibiotic therapy - home vs infusion center PATIENT/FAMILY EDUCATION NEEDS:: Review of discharge instructions, limitations, activity, medications, follow up plan, Ask Me Three TRANSPORTATION:: via private vehicle with family PLAN:: Emiliano' discharge plan is unclear at this time. He will likely require nursing home IV antibiotics to treat the osteomyelitis in his toe. The exact regimen and specific drug(s) are unknown at this time as culture results and sensitivities are pending. CM will continue to support Emiliano and assess for discharge needs.
[2022-01-22] MEDS: Propranolol 40 MG TAB 80 MG PO (10:11)
[2022-01-22] MEDS: Cetirizine 10 MG TAB PO (10:11)
--- NOTE | 2022-01-22 12:19 | PHACLINREV_ITS ---
Pharmacy Admission Review - Admission Clinical Review (Last Reviewed 01/21/22 @ 16:10 by Matt Rockwell MD) Type 2 diabetes mellitus with peripheral neuropathy (Acute) Osteomyelitis (Acute) Cellulitis (Acute) Hallux limitus of right foot (Acute) Ulcer of toe (Acute) hydrocodone Adverse Reaction (Intermediate, Unverified 12/28/21 06:28) Nausea Resuscitation Status Full Code Height 6 ft 2 in Weight 129.9 kg - Renal Dosing Renal Dosing: BUN 13 mg/dL (7-18) 01/22/22 05:42 Creatinine 0.8 mg/dL (0.70-1.30) 01/22/22 05:42 Medications needing adjustments: Reviewed (Crcl ~151.2 mL/min using adjusted body weight. Current meds okay.) - Anticoagulation Anticoagulation: Hgb 14.5 g/dL (13.5-17.5) 01/22/22 05:42 Hct 41.6 % (40.0-50.0) 01/22/22 05:42 Plt Count 284 10^3/uL (130-400) 01/22/22 05:42 Creatinine 0.8 mg/dL (0.70-1.30) 01/22/22 05:42 DVT Prophylaxis: N/A Therapeutic Anticoagulation: Reviewed Medications: Rivaroxaban (Rivaroxaban on hold until podiatry consult this evening (in case pt needs to go back to the OR) per provider.) - Opiate Usage Evaluate Pain Scale/Pains Meds: N/A - Relevant Labs ESR 44 mm/hr (0-20) H 01/21/22 12:40 Sodium 137 mmol/L (136-145) 01/22/22 05:42 Potassium 3.9 mmol/L (3.5-5.1) 01/22/22 05:42 Chloride 103 mmol/L (98-107) 01/22/22 05:42 C-Reactive Protein 9.70 mg/dL (0.0-0.3) H 01/21/22 12:40 Electrolytes, C-Reactive P, ESR: Reviewed - DM Control DM Control: Glucose 128 mg/dL (74-106) H 01/22/22 05:42 Finger Stick Blood Glucose 126 Finger Stick Blood Glucose 126 Finger Stick Blood Glucose 126 Finger Stick Blood Glucose 148 Finger Stick Blood Glucose 148 Finger Stick Blood Glucose 148 Insulin Dosing: Reviewed (Scheduled insulin glargine and sliding scale aspart ordered.) - Heart Failure/WV EF%, ROSIE's, B-Blockers, Diuretics: N/A - BP Control BP Control: Blood Pressure 132/88 Blood Pressure 123/74 If elevated: Reviewed (BP elevated on admission but has been within normal limits since then.) - Qtc Review If Elevated: N/A - IV to PO Switch IV Medications: Reviewed - Home Meds Home Med List reviewed: Intervened (Double checked that the propranolol is IR, pt takes trulicity on Sundays per provider.) Relevent Home Meds Not ordered & why?: augmentin (has IV abx ordered), metformin, mupirocin cream, rivaroxaban - Current meds Current Medication Order Review: Reviewed - Comments Comments/Follow Ups: Watch VS, BG, labs, for culture results and for med peña ges. Antibiotic Activity - Pharmacy Antibiotic Review Pharmacy Antibiotic Activity: Reviewed, no change (Vanco and meropenem ordered e mpirically for osteomyelitis. Blood and wound cultures pending. Vanco trough ordered for tomorrow morning.)
--- NOTE | 2022-01-22 14:20 | CHAPLAIN ---
Emiliano was sitting at the edge of his bed, on his cell phone. He said he was working. He was pleasant and easily engaged in a conversation. He expects his to be here to visit later today. I will continue to visit.
--- NOTE | 2022-01-22 15:01 | PGE_ITS ---
Date of Service Date of service: 01/22/22 Time of Service: 15:10 Assessment and Plan Assessment and plan (1) Osteomyelitis: Status: Acute Assessment and plan: S/P Debridement to bone right first MPJ with implantation stimulant antibiotic beads utilizing 240 mg gentamicin Cont Vanc and Aztreonam. Surgical bx culture growing gram neg smita. Blood cxs neg x 24 hours. No c/o pain / has peripheral diabetic neuropathy. (2) Cellulitis: Status: Acute Assessment and plan: as above (3) Type 2 diabetes mellitus with peripheral neuropathy: Status: Acute Assessment and plan: will cover w/ basal/bolus insulin (4) HTN (hypertension): Assessment and plan: Normotensive; continue propranolol which is actually being taken for essential tremor rather than for HTN (5) Pulmonary embolism: Assessment and plan: [facility] d/t surgery. D/W podiatry regarding resumption of AC. (6) HLD (hyperlipidemia): Assessment and plan: continue atorvastatin Subjective Subjective Patient reports: no new complaints, feels better and afebrile; denies nausea, vomiting or shortness of breath Exam Narrative Exam Narrative: Alert and oriented x4 HEENT: Sclera clear. Pupils equal. Neck: No JVD Lungs: Clear to auscultation and percussion Heart: Regular rate and rhythm without murmur Abdomen: Obese, Nondistended Extremities:No calf tenderness. RLE with increased girth compared to left (below the knee) but no pitting edema. R foot with post-surgical bandage/wrap in place. Psych: Normal affect. A&O x 3. Objective Last Vital Signs Temp 35.8 C L 01/22/22 07:26 Pulse 73 01/22/22 07:26 Resp 19 01/22/22 07:26 BP 132/88 01/22/22 07:26 Pulse Ox 95 01/22/22 07:26 Laboratory Results - last 24 hr 01/22/22 01/22/22 05:42 05:42 WBC 6.07 RBC 4.59 Hgb 14.5 Hct 41.6 MCV 91 MCH 31.6 MCHC 34.9 RDW 12.6 Plt Count 284 MPV 10.0 Immature Gran % 0.3 Neutrophils % 60.2 Lymphocytes % 25.0 Monocytes % 12.2 Eosinophils % 1.6 Basophils % 0.7 Nucleated RBC % 0.0 Absolute Neutrophils 3.65 Absolute Lymphocytes 1.52 Absolute Monocytes 0.74 Absolute Eosinophils 0.10 Absolute Basophils 0.04 Sodium 137 Potassium 3.9 Chloride 103 Carbon Dioxide 25.1 Anion Gap 8.9 BUN 13 Creatinine 0.8 Estimated GFR/1.73 m2 >= 60.00 Glucose 128 H Calcium 8.9
[2022-01-22 15:56] VITALS: BP 120/82; PULSE 73; RESP 16; TEMP 36.8; O2SAT 98
--- NOTE | 2022-01-22 18:01 | W.PM.PROGNOT ---
Date of Service Date of service: 01/22/22 Time of Service: 18:01 Subjective Subjective Interval history since last seen: Resting comfortably. No complaints of pain. He states he is feeling much better overall. Exam Narrative Exam Narrative: Emiliano is seen at bedside resting comfortably. He is sitting up in his bed with his feet dangling. Today's labs were reviewed. Cultures show gram-negative rods, sensitivities pending. Blood cultures are negative. Dressings are intact on his right foot with bloody strikethrough noted. The dressings are removed, the incision is coapted, sutures are intact. Serous like drainage is appreciated in the periwound area. Minimal maceration at this time. No erythema is currently noted. The edema is markedly reduced. The calf and ankle area are completely benign at this time. Impressions: 24 hours status post incision and drainage with resection first metatarsal head implantation of antibiotic beads with gentamicin as above Plan: Continue on his current cocktail of antibiotics pending sensitivities from culture. His blood sugars are in much better control and he is showing signs of improvement. We will allow him out of bed to use the bathroom but he must wear surgical shoe so as not to extrude the antibiotic beads from his incision. He remains at risk for failure to thrive. I discussed the case with . I will continue to follow. Objective Last Vital Signs Temp 36.8 C 01/22/22 15:56 Pulse 73 01/22/22 15:56 Resp 16 01/22/22 15:56 BP 120/82 01/22/22 15:56 Pulse Ox 98 01/22/22 15:56 Laboratory Results - last 24 hr 01/22/22 01/22/22 05:42 05:42 WBC 6.07 RBC 4.59 Hgb 14.5 Hct 41.6 MCV 91 MCH 31.6 MCHC 34.9 RDW 12.6 Plt Count 284 MPV 10.0 Immature Gran % 0.3 Neutrophils % 60.2 Lymphocytes % 25.0 Monocytes % 12.2 Eosinophils % 1.6 Basophils % 0.7 Nucleated RBC % 0.0 Absolute Neutrophils 3.65 Absolute Lymphocytes 1.52 Absolute Monocytes 0.74 Absolute Eosinophils 0.10 Absolute Basophils 0.04 Sodium 137 Potassium 3.9 Chloride 103 Carbon Dioxide 25.1 Anion Gap 8.9 BUN 13 Creatinine 0.8 Estimated GFR/1.73 m2 >= 60.00 Glucose 128 H Calcium 8.9
[2022-01-22 19:33] VITALS: BP 130/88; PULSE 77; RESP 18; TEMP 36.7; O2SAT 98
[2022-01-22] MEDS: Zolpidem 6.25 MG TABCR 12.5 MG PO (21:45)
[2022-01-22] MEDS: Insulin Glargine 300 UNITS/3 ML PEN 30 UNITS SC (21:46)
[2022-01-22 22:35] VITALS: BP 120/78; PULSE 84; RESP 18; TEMP 36.3; O2SAT 95
[2022-01-23] MEDS: MEROPENEM 1 GM in Normal Saline 100 ML IVPB ×3 (03:47→20:03)
[2022-01-23 06:43] LABS: Abs Immature Grans 0.03 10^3/uL (0.0-0.06); Absolute Basophil Count 0.04 10^3/uL (0.0-0.2); Absolute Eosinophil Count 0.14 10^3/uL (0.0-0.7); Absolute Lymphocyte Count 1.46 10^3/uL (1.2-3.4); Absolute Monocyte Count 0.58 10^3/uL (0.1-0.8); Absolute Neutrophil Count 3.54 10^3/uL (1.2-6.7); Basophils % 0.7; Eosinophils % 2.4; HCT 44.9 % (40.0-50.0); HGB 15.2 g/dL (13.5-17.5); Immature Grans % 0.5; Lymphocytes % 25.2; MCH 31.3 pg (27.0-33.0); MCHC 33.9 % (32.0-36.0); MCV 92 fL (80-95); MPV 9.8 fL (8.0-11.0); Neutrophils % 61.2; Platelet Count 285 10^3/uL (130-400); RBC 4.86 10^6/uL (4.36-5.78); RDW 12.4 % (11.8-14.1); RDW-SD 42.6 fL; WBC 5.79 10^3/uL (4.4-10.8)
[2022-01-23 07:00] LABS: C-Reactive Protein 3.87 mg/dL (0.0-0.3)
[2022-01-23 07:05] LABS: Vancomycin, Trough 16.1 ug/mL (10.0-20.0)
[2022-01-23 07:13] VITALS: BP 117/79; PULSE 65; RESP 18; TEMP 36; O2SAT 96
[2022-01-23] MEDS: Pregabalin 100 MG CAP PO (07:52)
[2022-01-23] MEDS: Empaglifozin 25 MG TAB PO (07:52)
[2022-01-23] MEDS: Propranolol 40 MG TAB 80 MG PO (07:52)
[2022-01-23] MEDS: Atorvastatin 10 MG TAB PO (07:52)
[2022-01-23] MEDS: Normal Saline Flush 10 ML SYR IVP ×2 (07:53→20:03)
[2022-01-23] MEDS: Cetirizine 10 MG TAB PO (07:53)
--- NOTE | 2022-01-23 08:11 | PDOC.CMPRO ---
- If Service Date Differs Date of service: 01/23/22 Time of Service: 08:11 Care Management Progress Note S/O:Emiliano was sitting up on the side of the bed when CM met with him. He was pleasant in interaction and agreeable to conversation. Emiliano admitted that he is getting bored in the hospital. He verbalized wanting to go home as soon as possible. He had a PICC line inserted today in preparation for adjunct faculty for medical terminology IVAB therapy. The specific antibiotic and dosing has not been determined yet as cultures have not been finalized It is not possible to begin the process of ordering home infusions until that information is available, a process that takes at least 24-48 hours. A:Emiliano is a 56 year old man admitted on 01/21/22 with osteomyelitis P:Emiliano' discharge plan is unclear at this time. He will likely require adjunct faculty for medical terminology IV antibiotics to treat the osteomyelitis in his toe. The exact regimen and specific drug(s) are unknown at this time as culture results and sensitivities are pending. CM will continue to support Emiliano and assess for discharge needs.
[2022-01-23] MEDS: VANCOMYCIN/WATER (PEG) 2 GM/400 ML BAG IV (08:24)
--- NOTE | 2022-01-23 15:14 | PGE_ITS ---
Date of Service Date of service: 01/23/22 Time of Service: 09:20 Assessment and Plan Assessment and plan (1) Osteomyelitis: Status: Acute Assessment and plan: S/P Debridement to bone right first MPJ with implantation antibiotic beads utilizing 240 mg gentamicin Cont Aztreonam. Surgical bx culture growing gram neg smita; final ID and sensitivites pending. Blood cxs neg x 48 hours. PICC ordered. No c/o pain / has peripheral diabetic neuropathy. (2) Cellulitis: Status: Acute Assessment and plan: as above (3) Type 2 diabetes mellitus with peripheral neuropathy: Status: Acute Assessment and plan: will cover w/ basal/bolus insulin (4) HTN (hypertension): Assessment and plan: Normotensive; continue propranolol which is actually being taken for essential tremor rather than for HTN (5) Pulmonary embolism: Assessment and plan: Held [facility] d/t surgery. D/W podiatry regarding resumption of AC. (6) HLD (hyperlipidemia): Assessment and plan: continue atorvastatin (7) Discharge planning issues: Status: Acute Assessment and plan: He will need long-term antibiotics; 6 weeks. Will arrange home infusion if possible; awaiting ID of organism. Subjective Subjective Patient reports: no new complaints, tolerating a regular diet and afebrile; denies diarrhea, nausea or vomiting Exam Narrative Exam Narrative: Alert and oriented x3 HEENT: Sclera clear. Pupils equal. Neck: No JVD Lungs: Clear to auscultation and percussion Heart: Regular rate and rhythm without murmur Abdomen: Obese, Nondistended Extremities:No calf tenderness. RLE with increased girth has diminished since yesterday. R foot with post-surgical bandage/wrap in place. Psych: Normal affect. A&O x 3. Objective Last Vital Signs Temp 36.0 C L 01/23/22 07:13 Pulse 65 01/23/22 07:13 Resp 18 01/23/22 07:13 BP 117/79 01/23/22 07:13 Pulse Ox 96 01/23/22 07:13 Laboratory Results - last 24 hr 01/23/22 01/23/22 01/23/22 06:05 06:05 06:05 WBC 5.79 RBC 4.86 Hgb 15.2 Hct 44.9 MCV 92 MCH 31.3 MCHC 33.9 RDW 12.4 Plt Count 285 MPV 9.8 Immature Gran % 0.5 Neutrophils % 61.2 Lymphocytes % 25.2 Monocytes % 10.0 Eosinophils % 2.4 Basophils % 0.7 Nucleated RBC % 0.0 Absolute Neutrophils 3.54 Absolute Lymphocytes 1.46 Absolute Monocytes 0.58 Absolute Eosinophils 0.14 Absolute Basophils 0.04 C-Reactive Protein 3.87 H Vancomycin Trough 16.1
[2022-01-23 16:08] VITALS: BP 125/82; PULSE 74; RESP 19; TEMP 36.8; O2SAT 97
--- NOTE | 2022-01-23 17:52 | W.PM.PROGNOT ---
Date of Service Date of service: 01/23/22 Time of Service: 17:52 Exam Narrative Exam Narrative: Emiliano is seen at bedside resting comfortably. Indicates he had a good night sleep, 6 hours uninterrupted. Vital signs are stable, he is afebrile. Labs continue to normalize. Microbiology identifies 2 g negative rods, sensitivities are pending dressings are removed from his right foot. Dressings are removed from his right foot. The wound appears much healthier. The maceration that I noted on the lateral aspect of the wound has resolved. His peripheral edema is markedly reduced and the erythema also markedly improved. Sensitivity?pain he experienced over the anterior ankle and distal leg area has resolved. He received a PICC line in his left upper extremity without difficulty. Impressions: Postop day #2 osteomyelitis first metatarsal, diabetic wound, wound dehiscence Plan: The periwound area was treated with povidone iodine, Xeroform gauze fluff compression dressings were reapplied. Flex net and Flaquito wrap utilized. He may continue to move from bed to bathroom as long as the surgical shoe is on his right foot. He remains in house for IV antibiotics and wound care. I will continue to follow. Objective Last Vital Signs Temp 36.8 C 01/23/22 16:08 Pulse 74 01/23/22 16:08 Resp 19 01/23/22 16:08 BP 125/82 01/23/22 16:08 Pulse Ox 97 01/23/22 16:08 Laboratory Results - last 24 hr 01/23/22 01/23/22 01/23/22 06:05 06:05 06:05 WBC 5.79 RBC 4.86 Hgb 15.2 Hct 44.9 MCV 92 MCH 31.3 MCHC 33.9 RDW 12.4 Plt Count 285 MPV 9.8 Immature Gran % 0.5 Neutrophils % 61.2 Lymphocytes % 25.2 Monocytes % 10.0 Eosinophils % 2.4 Basophils % 0.7 Nucleated RBC % 0.0 Absolute Neutrophils 3.54 Absolute Lymphocytes 1.46 Absolute Monocytes 0.58 Absolute Eosinophils 0.14 Absolute Basophils 0.04 C-Reactive Protein 3.87 H Vancomycin Trough 16.1
[2022-01-23] MEDS: Insulin Aspart 300 UNITS/3 ML PEN SC ×2 (18:16→21:11)
[2022-01-23] MEDS: Insulin Glargine 300 UNITS/3 ML PEN 30 UNITS SC (21:10)
[2022-01-23] MEDS: Zolpidem 6.25 MG TABCR 12.5 MG PO (21:10)
[2022-01-24] VITALS: BP 118/71; PULSE 82; RESP 17; TEMP 36.1; O2SAT 96
[2022-01-24] MEDS: MEROPENEM 1 GM in Normal Saline 100 ML IVPB ×2 (04:14→12:10)
[2022-01-24] MEDS: Normal Saline 500 ML 20 ML IV (04:51)
[2022-01-24] MEDS: Normal Saline Flush 10 ML SYR IVP ×4 (04:51→14:12)
[2022-01-24 06:52] LABS: C-Reactive Protein 2.14 mg/dL (0.0-0.3)
[2022-01-24 07:34] VITALS: BP 110/75; PULSE 78; RESP 18; TEMP 36.4; O2SAT 98
[2022-01-24] MEDS: Atorvastatin 10 MG TAB PO (08:06)
[2022-01-24] MEDS: Pregabalin 100 MG CAP PO (08:06)
[2022-01-24] MEDS: Cetirizine 10 MG TAB PO (08:06)
[2022-01-24] MEDS: Empaglifozin 25 MG TAB PO (08:07)
[2022-01-24] MEDS: Propranolol 40 MG TAB 80 MG PO (08:10)
--- NOTE | 2022-01-24 08:56 | CMPROGNOTE_ITS ---
- If Service Date Differs Date of service: 01/24/22 Time of Service: 08:57 Care Management Progress Note S/O:Emiliano was sitting up on the side of the bed when CM met with him. The identification and susceptibilities of the organism causing his infection have been identified and Emiliano will be able to receive Rocephin once daily for treatment. Arrangements have been made with the Infusion Center at [facility] to give the medication. Emiliano' first scheduled appointment is for 11:3 0 am tomorrow, Friday01/25/22. A:Emiliano is a 56 year old man admitted on 01/21/22 with osteomyelitis P:Emiliano' discharge plan is unclear at this time. He will likely require termite inspector IV antibiotics to treat the osteomyelitis in his toe. The exact regimen and specific drug(s) are unknown at this time as culture results and sensitivities are pending. CM will continue to support Emiliano and assess for discharge needs.
[2022-01-24] MEDS: Polyethylene Glycol 3350 17 GM PACKET PO (09:00)
[2022-01-24] MEDS: Docusate Sodium 100 MG CAP PO (09:00)
--- NOTE | 2022-01-24 10:16 | W.PM.DS.N ---
Date of service: 01/24/22 Time of Service: 13:08 DS: Diagnosis Discharge Diagnosis (1) Osteomyelitis: Status: Acute Asessment and Plan: Upon admission, meropenem and Vancomycin initiated for emperic broad-based antibiotic coverage. His WBC count remained normal. His CRP decreased from 9.7 to 2.14 On 01/21/22 he underwent debridement of the right rist MPJ with implantation stimulant antibiotic beads (240 Mg gentamicin). His recovery went well with the Right foot swelling resolving and good healing noted of the surgical site. Bone bx culture grew 2 isolates of enterobacter cloacae complex sensitive to all but cefazolin. Rocephin 2g IV daily to be initiated the day following discharge; 6 week course of antibiotics scheduled. (2) Cellulitis: Status: Acute Asessment and Plan: Resolved with antibiotic tx. (3) Type 2 diabetes mellitus with peripheral neuropathy: Status: Acute Asessment and Plan: Blood glucose maintained within, or close to within desired parameters with lower than his home dosage of Lantus, mealtime bolus insulin and his usual Jardiance. He does take Trulicity weekly and did not take his dose the Friday before admission. This medication is not on [facility] formulary. It was requested that his bring the medication to the hospital to be administered but this did not occur. He will resume the Trulicy as well as metformin upon discharge. (4) HTN (hypertension): Asessment and Plan: On no antihypertensive medications but does take propanolol for an essential tremor. He was normotensive during this hospitalization. (5) Pulmonary embolism: Asessment and Plan: His Rivaroxaban was initially held for his surgery, then restarted. (6) HLD (hyperlipidemia): Asessment and Plan: Continued on Atorvastatin. (7) Discharge planning issues: Status: Acute Asessment and Plan: Home with infusion center orders for Rocephin 2g daily for 6 weeks. Discharge Plan Disposition Patient Disposition: HOME Condition: Stable Discharge Details Reason For Visit: Osteomyelitis Right Great Toe Admit Date/Time: 01/21/22 14:37 Admit Provider: Matt Rockwell Attending Provider: Matt Rockwell Primary Care Provider: Unknown,Unknown Hospital Course Hospital Course: This is a 56-year-old type II diabetic treated with Jardiance, Trulicity and metformin, who had surgery on his right great toe to correct hallux limitus/rigidus deformity.? He underwent a Ny type bunionectomy on 12/28/2021.? 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 Since that time he has been following with his peoplesoft developer who has had him on oral antibiotics.? Patient just completed a course of Augmentin and in spite of that the right great toe has been draining purulent material and the skin opened up over the dorsum of the toe.? He was sent into the emergency department by his peoplesoft developer. Evaluation in the emergency department included an x-ray of the right foot showing osteomyelitis of the head of the right great toe.? The adjacent lateral half of the head of the great toe metatarsal joint appears to be eroded.? There was swelling of the soft tissue over this area and skin ulceration.? There was also edema of the proximal phalanx.? Laboratory work-up included CBC that was unremarkable.? CMP showed elevated glucose of 150 but otherwise normal LFTs and normal renal function electrolytes.? CRP is elevated 9.7.? Nasal swab for COVID-19 PCR test was negative.? Patient admitted for surgical debridement and bone biopsy and initiation of broad-spectrum antibiotics.? Comorbidities include hypertension and diabetes mellitus with peripheral neuropathy.? He denies a history of retinopathy or nephropathy.? He does have a history of a pulmonary embolus about 6 years ago that occurred de jim and has been chronically on Xarelto 10 mg daily since then.? Podiatry consulted. See Diagnosis for details. Scheduled for daily Rocephin infusion at [facility] for 6 week duration of treatment. F/U with Podiatry per their recommendation. F/U with PCP in 1 week. Home Meds and New Rx's Prescriptions: New ceftriaxone 2 gram recon soln 2 g IV DAILY Qty: 30 0RF Continued propranolol 80 mg Tablet 80 mg PO DAILY atorvastatin 10 mg Tablet 10 mg PO DAILY metformin 1,000 mg Tablet 1,000 mg PO BID mupirocin 2 % Ointment 1 applic TOPICAL DAILY pregabalin 100 mg Capsule 100 mg PO DAILY insulin glargine [Basaglar KwvianeyPen U-100 Insulin] 100 unit/mL (3 mL) Insulin Pen 50 unit SUBCUT QAM Xarelto 10 mg Tablet 10 mg PO DAILY Jardiance 25 mg Tablet 25 mg PO DAILY Trulicity 4.5 mg/0.5 mL Pen Injector 4.5 mg SUBCUT QWEEK Zyrtec 10 mg Capsule 10 mg PO DAILY Discontinued amoxicillin-pot clavulanate [Augmentin] 875-125 mg Tablet 1 tab PO BID Discharge Instructions Instructions: Osteomyelitis (DC) Stand Alone Forms: Nursing Discharge Form Referrals: [facility]- Infusion Center [Other] - 01/25/22 11:30 am Piter Maya [ NON-[facility] STAFF PHYSICIAN] - 01/31/22 1:40 pm Activity:: Elevate RLE often. Equipment/Supplies:: No Equipment Needed Diet:: Diabetic diet Discharge Orders Discharge Orders: Discharge Order (Routine); Ordered 01/24/22 Ordered By: Ulises Maria DS: Summary Time Spent with Patient providing and/or coordinating discharge services: Greater than 30 minutes Status at Discharge Functional status at discharge: independent ambulation Overall status at discharge: patient is progressing back to baseline Mental Status: mental status grossly normal Speech and Movement: speech and movement normal Mood: congruent mood Affect: normal affect Exam Narrative Exam Narrative: Alert and oriented x3 HEENT: Sclera clear. Pupils equal. Neck: No JVD Lungs: Clear to auscultation and percussion Heart: Regular rate and rhythm without murmur Abdomen: Obese, Nondistended Extremities:No calf tenderness. RLE with increased girth has diminished since yesterday. R foot with post-surgical bandage/wrap in place. Psych: Normal affect. A&O x 3. Neuro General: patient alert, patient oriented x3, no focal motor deficits and not confused Cranial Nerves: facial strength normal Motor: tremor (BUEs) Psych Mental Status: mental status grossly normal Speech and Movement: speech and movement normal Mood: congruent mood Affect: normal affect DS: Data Vitals/I&O Vitals and I&O: Vital Signs Temperature 36.4 C L 01/24/22 07:34 Temperature Source Tympanic 01/24/22 07:34 Pulse 78 01/24/22 07:34 Pulse Rhythm Regular 01/24/22 08:43 Respiratory Rate 18 01/24/22 07:34 Respiratory Effort Non-Labored 01/24/22 08:43 Respiratory Depth Normal 01/24/22 08:43 Respiratory Pattern Normal 01/24/22 08:43 Blood Pressure 110/75 01/24/22 07:34 Blood Pressure Position Sitting 01/21/22 10:08 Pulse Oximetry 98 01/24/22 07:34 Oxygen Delivery Method Room Air 01/24/22 07:34 Oxygen Flow Rate 0 01/24/22 07:34 Pain Level 0 01/24/22 07:34 Intake & Output 01/23/22 01/23/22 01/24/22 11:59 23:59 11:59 Intake Total 1250 / 1690 440 / 1690 504.333 / 504.333 Output Total 3275 / 6875 3600 / 6875 1700 / 1700 Balance -2025 / -5185 -3160 / -5185 -1195.667 / -1195.667 Weight 128.9 kg 129.4 kg Intake: IV 500 / 700 200 / 700 144.333 / 144.333 Oral 750 / 990 240 / 990 360 / 360 Output: Urine 3275 / 6875 3600 / 6875 1700 / 1700 Other: Urine Color Yellow Pale Pale Yellow Yellow Urine Appearance Clear Clear Clear Urine Odor None None Voiding Methods Urinal Urinal Urinal Data Completed and Pending Labs on day of discharge: Labs from last 24 hours 01/24/22 06:25 C-Reactive Protein 2.14 H Preliminary micro results at discharge 01/21/22 17:57 Anaerobic Culture - Preliminary Toe - Right Big Toe 01/21/22 17:57 Wound Culture - Preliminary Bone - Right Big Toe Enterobacter Cloacae Complex Enterobacter Cloacae Complex#2 01/21/22 14:24 Blood Culture - Preliminary Blood NO GROWTH 48 HOURS 01/21/22 12:40 Blood Culture - Preliminary Blood NO GROWTH 48 HOURS [facility] All Active Problems Discharge planning issues (Acute) Type 2 diabetes mellitus with peripheral neuropathy (Acute) Osteomyelitis (Acute) Cellulitis (Acute) Hallux limitus of right foot (Acute) Ulcer of toe (Acute) Medical History Bursitis of shoulder Calculus of kidney Diabetes Erectile dysfunction Essential tremor Heartburn HLD (hyperlipidemia) HTN (hypertension) Pulmonary embolism 2019 Surgical History Hx of colonoscopy Hx of knee surgery right - reconstruction acl/mcl Family History Father Diabetes Heart disease father w/ [place] and subsequent two open heart surgeries for CABG; onset of CAD was in his 50's Social History Smoking/Tobacco Use Status: Current every day Tobacco Type: smokeless tobacco Smoking risk assessment performed?: Yes Alcohol Intake: current Alcohol Intake frequency: a few times a week Alcohol type: beer Drug use: Never Substance use type: does not use Do you feel safe at home: Yes Do you feel safe in your relationship?: Yes
--- NOTE | 2022-01-24 10:42 | PDOC.CMDIS ---
- If Service Date Differs Date of service: 01/24/22 Time of Service: 10:42 LACE Index Scoring Tool - Questions: Length of Stay (in days): 3 Acuity (Admit via E.D.?): Yes Comorbidities: Diabetes w/o Complication E.D. Visits: 1 - Answers: Total Score: 8 Risk of Readmission: Low Risk Care Management Discharge Reason for Hospitalization: Osteomyelitis Discharge Plan: Emiliano will be discharged home with no new services. He will require 6 weeks of IV Rocephin which will be administered at [facility] in their Infusion Center. His first appointment has been made by CM for 11:30 am tomorrow. Emiliano will follow up with his PCP and Dr. Betancourt and transport with family. Patient/Family Education Needs: Review of discharge instructions, limitations, activity, medications, follow up plan, Ask Me Three Services Needed at Discharge: Infusion Therapy
[2022-01-24] MEDS: Rivaroxaban 10 MG TABLET PO (14:11)
[2022-01-24] MEDS: cefTRIAXone 1 GM/50 ML BAG IVPB (14:11)
[2022-01-24 15:12] VITALS: BP 131/84; PULSE 64; RESP 18; TEMP 36.3; O2SAT 94
--- NOTE | 2022-01-24 18:03 | W.PM.PROGNOT ---
Date of Service Date of service: 01/24/22 Time of Service: 18:04 Exam Narrative Exam Narrative: Emiliano is seen resting comfortably in his chair with his foot elevated. He is looking forward to going home this evening. He denies any pain or discomfort at all. He is scheduled to receive a 6-week course of antibiotics, Rocephin 2 g daily through a PICC line at [facility] beginning tomorrow. Microbiology revealed 2 gram-negative rods both susceptible to Rocephin. Dressing change was performed. Serous drainage is still noted coming from the wound which is loosely coapted. He had some low-grade redness immediately around the wound consistent with findings from yesterday. Toes had good capillary return. Minimal peripheral edema, calf was soft to palpation no findings of DVT. Impressions postop day #2 without complication Plan: I agree with Rocephin 2 g daily for management of his current infection. Rocephin has good bone penetration. I will have the infusion department at [facility] change his dressings every other day consisting of: Painting the periwound area with povidone iodine, applying Aquacel alginate type dressing, gauze and kerlex, flex net and Flaquito wrap. Weekly labs were discussed and a CBC, CRP at a minimum will be drawn and sent to his PCP who is also located in [place]. I did emphasize the importance to Emiliano of staying off his foot is much as possible and keeping it elevated above the level of the heart to facilitate healing. He needs to ambulate with a surgical shoe and I will consider adding axillary crutches to further offload pressure from his right foot but he is full weightbearing. I will see him in the office next week for follow-up. Objective Last Vital Signs Temp 36.3 C L 01/24/22 15:12 Pulse 64 01/24/22 15:12 Resp 18 01/24/22 15:12 BP 131/84 01/24/22 15:12 Pulse Ox 94 01/24/22 15:12 Laboratory Results - last 24 hr 01/24/22 06:25 C-Reactive Protein 2.14 H
== END 2022-01-24 18:35 | disposition home or self-care (01) | DRG 908 ==
LOC: ER 14:45 → MS 15:11
PROVIDERS: Family Medicine; Podiatrist; Admitting Provider Internal Medicine; Emergency Provider Emergency Medicine; Visit Provider Internal Medicine
PROC: 0QBN0ZZ Excision of Right Metatarsal, Open Approach (ICD-10-PCS; CPT 11044; principal; 2022-01-21 17:00)
DX: T81.31XA Disruption of external operation (surgical) wound, not elsewhere classified, initial encounter (principal); L03.115 Cellulitis of right lower limb; M86.171 Other acute osteomyelitis, right ankle and foot; E11.69 Type 2 diabetes mellitus with other specified complication; E11.621 Type 2 diabetes mellitus with foot ulcer; E11.42 Type 2 diabetes mellitus with diabetic polyneuropathy; I10 Essential (primary) hypertension; L97.514 Non-pressure chronic ulcer of other part of right foot with necrosis of bone; E78.5 Hyperlipidemia, unspecified; Z86.711 Personal history of pulmonary embolism; G25.0 Essential tremor; Z79.84 Long term (current) use of oral hypoglycemic drugs; Z79.899 Other long term (current) drug therapy; F17.290 Nicotine dependence, other tobacco product, uncomplicated; Z79.4 Long term (current) use of insulin
CPT/HCPCS: 11044; 20700; 36415; 36569; 80048; 80053; 85652; 87040; 87077; 87635; 96360; 96361; 99285; 73630; 80202; 85025; 86140; 87070; 87075; 87186; 87205; 99222; 99232; 99239; J0696; J1580; J2250; J2405

== ENCOUNTER 2022-03-19 15:11 | Outpatient (CLI) | payer BC, SELFPAY ==
[2022-03-19 14:42] LABS: Abs Immature Grans 0.03 10^3/uL (0.0-0.06); Absolute Basophil Count 0.03 10^3/uL (0.0-0.2); Absolute Eosinophil Count 0.11 10^3/uL (0.0-0.7); Absolute Lymphocyte Count 2.06 10^3/uL (1.2-3.4); Absolute Monocyte Count 0.54 10^3/uL (0.1-0.8); Absolute Neutrophil Count 3.05 10^3/uL (1.2-6.7); Basophils % 0.5; Eosinophils % 1.9; Immature Grans % 0.5; Lymphocytes % 35.4; Monocytes % 9.3; Neutrophils % 52.4; WBC 5.82 10^3/uL (4.4-10.8)
[2022-03-19 14:48] LABS: ESR 5 mm/hr (0-20)
== END 2022-03-19 15:12 | disposition home or self-care (01) ==
LOC: LBO 15:12
PROVIDERS: PCP Family Medicine; Visit Provider Podiatrist Foot & Ankle Surgery
DX: E11.69 Type 2 diabetes mellitus with other specified complication (principal); M86.9 Osteomyelitis, unspecified
CPT/HCPCS: 36415; 85048; 85652; 86141; 85007

== ENCOUNTER 2022-06-18 20:51 | Emergency (ER) | payer BC, SELFPAY ==
[2022-06-18 20:57] VITALS: BP 123/79; PULSE 90; RESP 15; TEMP 36.9; O2SAT 95
--- NOTE | 2022-06-18 21:55 | W.ED.GENAD ---
Discharge Plan Disposition Patient Disposition: Home Condition: Stable Discharge Details Clinical Impression: Cellulitis of foot Primary Care Provider: Piter Maya ED Provider: Matt Fitzgerald Home Meds and New Rx's Prescriptions: New sulfamethoxazole-trimethoprim [Bactrim DS] 800-160 mg tablet 1 tab PO BID Qty: 20 0RF Continued cephalexin 500 mg capsule 500 mg PO TID 7 Days Qty: 21 0RF propranolol 80 mg Tablet 80 mg PO DAILY atorvastatin 10 mg Tablet 10 mg PO DAILY metformin 1,000 mg Tablet 1,000 mg PO BID mupirocin 2 % Ointment 1 applic TOPICAL DAILY pregabalin 100 mg Capsule 100 mg PO DAILY insulin glargine [Basaglar KwikPen U-100 Insulin] 100 unit/mL (3 mL) Insulin Pen 50 unit SUBCUT QAM Xarelto 10 mg Tablet 10 mg PO DAILY Jardiance 25 mg Tablet 25 mg PO DAILY Trulicity 4.5 mg/0.5 mL Pen Injector 4.5 mg SUBCUT QWEEK Zyrtec 10 mg Capsule 10 mg PO DAILY No Action cephalexin 500 mg Capsule 500 mg PO 3XD Discharge Instructions Instructions: Cellulitis (ED) Additional Instructions: Continue Keflex as directed and add on Bactrim. A single dose of Xarelto was given now. I cannot stress the importance that you fill your Xarelto and Trulicity tomorrow and take as directed. Rest, elevate, warm compresses every 2 hours for 20 minutes. I have placed you on the podiatry list but I recommend contacting their office tomorrow to discuss your ER visit, worsening symptoms, and need for outpatient reevaluation sooner than 2 weeks. MRI very may be indicated for further evaluation of your symptoms. Please watch for new or worsening symptoms and return to the ER for any concerns. Discharge Data Discharge Date/Time-TO BE ENTERED AT DEPARTURE: 06/18/22 23:43 Medical Decision Making This is a 57-year-old gentleman presenting to the ER today admitting that he has been noncompliant with his Trulicity and Xarelto for 4-6 weeks, presenting for concern of potential DVT. Patient seen by his chop saw operator today, sent for an outpatient ultrasound and was told he will be called with the results, has not received a call. Also started on Keflex for cellulitis of the foot. Told to follow-up with podiatry in 2 weeks. Patient was given a single dose of Xarelto now, reports that he can fill both Xarelto and Trulicity tomorrow at the pharmacy. I was able to review his ultrasound as outpatient today, no acute DVT, possible remote DVT approximately 4 cm and is partially compressible. No evidence of leukocytosis or fever. Patient does not appear toxic. Glucose over 400, no evidence of DKA, patient has been noncompliant for approximately 4-6 weeks. He is scheduled to take his appropriate medications tonight when he gets home. X-ray reveals interval osteolysis of the head of the first metatarsal bone with periosteal reaction possibly related to age-indeterminate osteomyelitis. Plan to initiate Bactrim as well. We will place on the podiatry list to help expedite outpatient care, this will require close follow-up potential MRI if symptoms not improving with antibiotic therapy. Clinically he appears well, nontoxic, afebrile, x-ray does not reveal any definitive osteomyelitis. Examination is most consistent with localized cellulitis. We discussed the importance of compliance. He tells me that he has refills at the pharmacy of both medications and he can fill them tomorrow. Strict discharge and return precautions were provided. Patient understands, is agreeable to this plan, and has no additional questions or concerns upon discharge. This documentation was generated using [employer] dictation system, please disregard any oddities of phrase or misspellings. Medical Records Medical records reviewed: Yes I reviewed the patient's medical records. Imaging Data Radiologic Study: Attestation: I personally reviewed and interpreted this imaging study as follows: Imaging: Ultrasound Radiologist's impression: Exam(s) US LOWER EXTREMITY VENOUS RT EXAM:? US LOWER EXTREMITY VENOUS RT CLINICAL HISTORY:? Rt calf pain, M79.661, Type 2 DM w/diabetic polyneuropathy, E11.42 TECHNIQUE:? Grayscale, color, and doppler imaging of the deep venous system of the? lower extremity was performed. COMPARISON:? No exams were available for comparison FINDINGS: There is no evidence of acute appearing intraluminal thrombus and there is normal compression and augmentation demonstrated within the common femoral vein, femoral vein, and popliteal vein. In the ipsilateral calf the interrogated veins also exhibit normal compression/ augmentation properties. The ipsilateral saphenofemoral junction is patent. Some mural calcifications noted in the veins within the gastrocnemius muscle.? This possibly represents calcified remote DVT.? This is along the length of approximately 4 cm and is partially compressible. IMPRESSION: 1.? No evidence of acute DVT in the right lower extremity. 2.? Calcified probable remote DVT in veins within the ipsilateral right gastrocnemius muscle, over a distance of approximately 4 cm. Radiologic Study #2: Attestation: I personally reviewed and interpreted this imaging study as follows: Imaging: X-Ray Radiologist's impression: PROCEDURE INFORMATION: Exam: XR Right Foot Exam date and time: 06/18/2022 10:33 PM Age: 57 years old Clinical indication: Pain; Foot; Right; Prior surgery; Patient HX: Great toe infection TECHNIQUE: Imaging protocol: Radiologic exam of the Right foot. Views: 3 or more views. COMPARISON: CR XR FOOT RT COMPLETE 01/21/2022 1:24 PM FINDINGS: Bones/joints: Interval osteolysis of the head of the 1st metatarsal bone with periosteal reaction possibly related to age-indeterminate osteomyelitis. Soft tissues: Soft tissue swelling around the 1st toe and metatarsophalangeal joint. IMPRESSION: Interval osteolysis of the head of the 1st metatarsal bone with periosteal reaction possibly related to age-indeterminate osteomyelitis. Lab Data Lab results reviewed: Yes I reviewed the patient's lab results. Labs: Laboratory Tests Range/Units 06/18/22 06/18/22 22:25 22:25 WBC (4.4-10.8) 10^3/uL 7.51 RBC (4.36-5.78) 10^6/uL 5.38 Hgb (13.5-17.5) g/dL 16.2 Hct (40.0-50.0) % 47.5 MCV (80-95) fL 88 MCH (27.0-33.0) pg 30.1 MCHC (32.0-36.0) % 34.1 RDW (11.8-14.1) % 12.4 Plt Count (130-400) 10^3/uL 250 MPV (8.0-11.0) fL 10.0 Immature Gran % 0.3 Neutrophils % 64.4 Lymphocytes % 21.8 Monocytes % 11.6 Eosinophils % 1.2 Basophils % 0.7 Nucleated RBC % (0.0-0.3) % 0.0 Absolute Neutrophils (1.2-6.7) 10^3/uL 4.84 Absolute Lymphocytes (1.2-3.4) 10^3/uL 1.64 Absolute Monocytes (0.1-0.8) 10^3/uL 0.87 H Absolute Eosinophils (0.0-0.7) 10^3/uL 0.09 Absolute Basophils (0.0-0.2) 10^3/uL 0.05 Sodium (136-145) mmol/L 132 L Potassium (3.5-5.1) mmol/L 4.3 Chloride (98-107) mmol/L 98 Carbon Dioxide (21.0-32.0) mmol/L 28.5 Anion Gap (3-11) mmol/L 5.5 BUN (7-18) mg/dL 17 Creatinine (0.70-1.30) mg/dL 1.3 Est GFR (CKD-EPI 2020) (mL/min/1.73m2) 64.88 Glucose (74-106) mg/dL 409 H Calcium (8.5-10.1) mg/dL 9.6 Total Bilirubin (0.2-1.0) mg/dL 0.6 AST (15-37) U/L 15 ALT (16-63) U/L 30 Alkaline Phosphatase (46-116) U/L 88 Total Protein (6.4-8.2) g/dL 8.4 H Albumin (3.4-5.0) g/dL 3.8 HPI General Mode of arrival: ambulatory. Date/Time Provider Initiated Documentation: 06/18/22 20:52. Limitations to Documentation: no limitations. Information obtained by: patient and family. HPI Narrative: This is a 57-year-old male with a past medical history of type 2 diabetes, neuropathy, hyperlipidemia, PE, former right great toe surgery, osteomyelitis, hypertension, presenting to the ER reporting recent travel across the country via car, concern for potential blood clot in his right lower leg secondary to nontraumatic pain, also concerned for potential infection of his great toe. Patient states that he contacted his chop saw operator today, had an outpatient ultrasound but does not know the results, took a single dose of Keflex as they provided this prescription today. Upon further investigation it turns out the patient has not been taking his Xarelto or Trulicity for the past 4-6 weeks. He denies recent illness or trauma, fever, chest pain, shortness of breath. Related Data Home Medications Medication Instructions Recorded Confirmed atorvastatin 10 mg tablet 10 mg PO DAILY 12/26/21 06/18/22 dulaglutide 4.5 mg/0.5 mL 4.5 mg subcut QWEEK 12/26/21 02/25/22 subcutaneous pen injector (Trulicity) empagliflozin 25 mg tablet 25 mg PO DAILY 12/26/21 06/18/22 (Jardiance) insulin glargine 100 unit/mL (3 50 unit subcut QAM 12/26/21 06/18/22 mL) subcutaneous pen (Basaglar KwikPen U-100 Insulin) metformin 1,000 mg tablet 1,000 mg PO BID 12/26/21 06/18/22 mupirocin 2 % topical ointment 1 applic topical DAILY 12/26/21 02/25/22 pregabalin 100 mg capsule 100 mg PO DAILY 12/26/21 06/18/22 propranolol 80 mg tablet 80 mg PO DAILY 12/26/21 06/18/22 rivaroxaban 10 mg tablet (Xarelto) 10 mg PO DAILY 12/26/21 02/25/22 cetirizine 10 mg capsule (Zyrtec) 10 mg PO DAILY 01/22/22 06/18/22 cephalexin 500 mg capsule 500 mg PO 3XD 06/18/22 06/18/22 cephalexin 500 mg capsule 500 mg PO TID 7 days #21 caps 06/18/22 06/18/22 sulfamethoxazole 800 1 tab PO BID #20 tabs 06/18/22 mg-trimethoprim 160 mg tablet (Bactrim DS) Previous Rx's Medication Instructions Recorded cephalexin 500 mg capsule 500 mg PO TID 7 days #21 caps 06/18/22 sulfamethoxazole 800 1 tab PO BID #20 tabs 06/18/22 mg-trimethoprim 160 mg tablet (Bactrim DS) Allergies Allergy/AdvReac Type Severity Reaction Status Date / Time hydrocodone AdvReac Intermediate Nausea Verified 06/18/22 23:27 General Stated Complaint: GenMedical ALEXX: 3 Review of Systems Constitutional Constitutional: Denies fever(s) Cardiovascular Cardiovascular: Denies chest pain and Denies dyspnea Respiratory Respiratory: Denies cough and Denies dyspnea Gastrointestinal Gastrointestinal: Denies abdominal pain, Denies nausea and Denies vomiting Musculoskeletal Musculoskeletal: Reports arthralgias and Reports tingling (Baseline paresthesias) Integumentary/Breasts Skin/Breast: Reports erythema Neurologic Neurologic: Reports tingling (Baseline paresthesias) Hematologic/Lymphatic Hematologic/Lymphatic: Denies easy bleeding and Denies easy bruising PFSH All Active Problems (Updated 06/18/22 @ 23:18 by RYNE Swanson) Cellulitis of foot (Acute) Pain of right calf (Acute) Type 2 diabetes mellitus with peripheral neuropathy (Acute) Osteomyelitis (Acute) Medical History Bursitis of shoulder Calculus of kidney Diabetes Erectile dysfunction Essential tremor Heartburn HLD (hyperlipidemia) HTN (hypertension) Pulmonary embolism 2019 Surgical History Hx of colonoscopy Hx of knee surgery right - reconstruction acl/mcl Family History Father Diabetes Heart disease father w/ [place] and subsequent two open heart surgeries for CABG; onset of CAD was in his 50's Social History Smoking/Tobacco Use Status: Current every day Tobacco Type: smokeless tobacco Smoking risk assessment performed?: Yes Alcohol Intake: current Alcohol Intake frequency: a few times a week Alcohol type: beer Drug use: Never Substance use type: does not use Do you feel safe at home: Yes Do you feel safe in your relationship?: Yes Exam Const General: cooperative, healthy appearing, comfortable and no acute distress Orientation: alert and awake [facility] Head: normal to inspection, normocephalic and atraumatic Eyes Conjunctivae: conjunctivae normal Neck Neck: normal visual inspection, full ROM, no meningeal signs, trachea midline and supple Resp Effort & Inspection: normal respiratory effort and able to speak in complete sentences Auscultation: clear to auscultation bilaterally Cardio Rate: regular rate Rhythm: regular rhythm Skin General skin exam: erythema Neuro General: patient alert, patient awake, moves all extremities and no focal motor deficits Cognition: normal cognition Speech: speech normal Gait: antalgic Motor: muscle tone normal throughout Sensory Exam: no sensory deficits noted Extrem General: capillary refill normal Ankle/foot/toe images: 1. None circumferential erythema, warmth, tenderness. Skin is intact. Neuro, vascular, tendon intact. No induration or fluctuance, no evidence of pointing abscess Psych Appearance: grossly normal Mental Status: mental status grossly normal Course Vital Signs Vital signs: Vital Signs Temperature 36.9 C 06/18/22 20:57 Pulse 90 06/18/22 20:57 Respiratory Rate 15 06/18/22 20:57 Blood Pressure 123/79 06/18/22 20:57 Pulse Oximetry 95 06/18/22 20:57 Temperature 36.9 C 06/18/22 20:57 Temperature Source Oral 06/18/22 20:57 Pulse 90 06/18/22 20:57 Respiratory Rate 15 06/18/22 20:57 Blood Pressure 123/79 06/18/22 20:57 Blood Pressure Position Sitting 06/18/22 20:57 Pulse Oximetry 95 06/18/22 20:57 Oxygen Delivery Method Room Air 06/18/22 20:57 Oxygen Flow Rate 0 06/18/22 20:57 Pain Level 8 06/18/22 20:57
--- NOTE | 2022-06-18 22:00 | DI.RAD_ITS ---
Exam(s) XR FOOT RT COMPLETE EXAM: XR FOOT RT COMPLETE CLINICAL HISTORY: great toe infection. TECHNIQUE: 2D digital imaging was performed. Three views. COMPARISON: CR XR FOOT RT COMPLETE from 01/21/2022 FINDINGS: BONES: Prior resection of the base of the 1st proximal phalanx. There has been further erosion of th e 1st metatarsal head when compared the previous exam. There is also some irregularity but no defini te lucency at the base of the proximal phalanx. Findings may represent postsurgical changes and/or effects from prior episode of osteomyelitis. Superimposed acute osteomyelitis not excluded. Heel sp urs and degenerative changes are present. JOINTS: No dislocation present. SOFT TISSUE: Soft tissue swelling around 1st MTP joint and great toe. IMPRESSION: Marked soft tissue swelling around 1st MTP joint. Postsurgical deformities of the 1st proximal phala nx and metatarsal head. Acute osteomyelitis not excluded. DATA REPOSITORY: RADIATION DOSE DELIVERED:
[2022-06-18 22:32] LABS: Abs Immature Grans 0.02 10^3/uL (0.0-0.06); Absolute Basophil Count 0.05 10^3/uL (0.0-0.2); Absolute Eosinophil Count 0.09 10^3/uL (0.0-0.7); Absolute Lymphocyte Count 1.64 10^3/uL (1.2-3.4); Absolute Monocyte Count 0.87 10^3/uL (0.1-0.8); Absolute Neutrophil Count 4.84 10^3/uL (1.2-6.7); Basophils % 0.7; Eosinophils % 1.2; HCT 47.5 % (40.0-50.0); HGB 16.2 g/dL (13.5-17.5); Immature Grans % 0.3; Lymphocytes % 21.8; MCH 30.1 pg (27.0-33.0); MCHC 34.1 % (32.0-36.0); MCV 88 fL (80-95); Monocytes % 11.6; Neutrophils % 64.4; Platelet Count 250 10^3/uL (130-400); RBC 5.38 10^6/uL (4.36-5.78); RDW 12.4 % (11.8-14.1); RDW-SD 40.3 fL; WBC 7.51 10^3/uL (4.4-10.8)
[2022-06-18 22:48] LABS: ALT 30 U/L (16-63); AST 15 U/L (15-37); Albumin 3.8 g/dL (3.4-5.0); Alkaline Phosphatase 88 U/L (46-116); Anion Gap 5.5 mmol/L (3-11); BUN 17 mg/dL (7-18); Bilirubin, Total 0.6 mg/dL (0.2-1.0); CO2 28.5 mmol/L (21.0-32.0); CREATININE 1.3 mg/dL (0.70-1.30); Calcium 9.6 mg/dL (8.5-10.1); Chloride 98 mmol/L (98-107); Estimated GFR 64.88 (mL/min/1.73m2); Glucose 409 mg/dL (74-106); Potassium 4.3 mmol/L (3.5-5.1); Sodium 132 mmol/L (136-145); Total Protein 8.4 g/dL (6.4-8.2)
[2022-06-18] MEDS: Rivaroxaban 10 MG TABLET PO (23:01)
--- NOTE | 2022-06-18 23:04 | DI.VRAD_ITS ---
PROCEDURE INFORMATION: Exam: XR Right Foot Exam date and time: 06/18/2022 10:33 PM Age: 57 years old Clinical indication: Pain; Foot; Right; Prior surgery; Patient HX: Great toe infection TECHNIQUE: Imaging protocol: Radiologic exam of the Right foot. Views: 3 or more views. COMPARISON: CR XR FOOT RT COMPLETE 01/21/2022 1:24 PM FINDINGS: Bones/joints: Interval osteolysis of the head of the 1st metatarsal bone with periosteal reaction possibly related to age-indeterminate osteomyelitis. Soft tissues: Soft tissue swelling around the 1st toe and metatarsophalangeal joint. IMPRESSION: Interval osteolysis of the head of the 1st metatarsal bone with periosteal reaction possibly related to age-indeterminate osteomyelitis. Dictated and Authenticated by: Levon Aleman MD. Ordering:MUMTAZ Gutierrez MD
[2022-06-18 23:41] VITALS: BP 128/84; PULSE 86; RESP 15; O2SAT 94
[2022-06-18 23:42] VITALS: RESP 15
[2022-06-18] MEDS: Sulfameth/Trimeth DS TAB 1 TAB PO (23:44)
== END 2022-06-18 23:43 | disposition home or self-care (01) ==
PROVIDERS: Emergency Provider Physician Assistant; PCP Family Medicine
DX: L03.115 Cellulitis of right lower limb (principal); I10 Essential (primary) hypertension; E11.40 Type 2 diabetes mellitus with diabetic neuropathy, unspecified; Z86.711 Personal history of pulmonary embolism; Z79.01 Long term (current) use of anticoagulants; Z79.4 Long term (current) use of insulin; Z79.84 Long term (current) use of oral hypoglycemic drugs; Z79.85 Long-term (current) use of injectable non-insulin antidiabetic drugs
CPT/HCPCS: 80053; 99283; 73630; 85025; 99284